=== PATIENT | female | born 1970 | race Caucasian/White ===

== ENCOUNTER → 2017-07-28 10:50 | Outpatient (CLI) | payer BC, SELFPAY ==
--- NOTE | 2017-07-28 10:52 | HPBI_ITS ---
MAMMOGRAPHY - BILATERAL SCREENING REASON FOR EXAM: Female, 47 years old. Routine annual screening examination. PERTINENT HISTORY: Aunt with breast cancer. TECHNIQUE: Digital bilateral breast shana (3D mammographic acquisition) in the CC and MLO projections. 2-D mediolateral oblique (MLO) and craniocaudad (CC) views of both breasts were obtained. CAD: Full Field Digital Mammography with Computer Added Detection was performed. COMPARISON: Comparison is made with prior study dated July 27, 2016 and July 07, 2015. FINDINGS: Breast Composition: The breasts are almost entirely fatty. There are no dominant masses or suspicious calcifications. No other significant abnormalities are identified. There has been no significant change since the prior study. HPBI/SCREENING MAMM (CAD), BILAT IMPRESSION: Stable bilateral screening mammogram. Yearly follow-up mammogram recommended. (A) ASSESSMENT CATEGORY: BIRADS Category 1: Negative. A letter regarding these results will be sent to the patient by the facility within 30 days. Approximately 10% of breast cancers are not detected by mammography. A normal mammogram should not delay biopsy of a clinically suspicious abnormality. [id number] Electronically Signed: Loki Vleásquez MD at 14:19 EST Tel [phone], Service support ,
[2017-08-01 11:33] LABS: HPV Reflexed? NOT INDICATED
== END ==
PROVIDERS: Family Provider Family Medicine; PCP Family Medicine; Visit Provider Obstetrics & Gynecology
DX: Z12.31 Encounter for screening mammogram for malignant neoplasm of breast (principal); Z12.4 Encounter for screening for malignant neoplasm of cervix
CPT/HCPCS: 77063; 77067; 88175; G0145

== ENCOUNTER → 2017-08-25 15:54 | Outpatient (CLI) | payer BC, SELFPAY ==
--- NOTE | 2017-08-25 15:57 | RAD_ITS ---
STUDY: X-RAY CHEST REASON FOR EXAM: Female, 47 years old. Asthma exacerbation TECHNIQUE: PA and lateral views of the chest. COMPARISON: 06/03/2008 FINDINGS: The lungs are clear and expanded. There is no demonstrated pleural abnormality. Normal size heart. Normal mediastinum and piedad. Normal visualized pulmonary arteries. Normal visualized aortic arch and descending thoracic aorta. There are diffuse degenerative changes of the visualized thoracic spine. Normal visualized ribs, clavicles, and shoulders. There is no demonstrated abnormality of the visualized soft tissue structures of the upper abdomen. RAD/Chest PA and Lateral IMPRESSION: No acute process in the chest. Electronically Signed: Colton Singleton DO at 15:54 EDT Tel , Service support ,
== END ==
PROVIDERS: Family Provider Family Medicine; PCP Family Medicine; Visit Provider Family Medicine
DX: J45.901 Unspecified asthma with (acute) exacerbation (principal)
CPT/HCPCS: 71046

== ENCOUNTER → 2017-10-07 11:32 | Outpatient (CLI) | payer BC, SELFPAY ==
--- NOTE | 2017-10-07 11:34 | VDLE_ITS ---
Reason For Study: LEG PAIN AND SWELLING RIGHT LEFT CFV is compressible, spontaneous, phasic, CFV is compressible, spontaneous, phasic, competent and demonstrates normal competent, and demonstrates normal augmentation. augmentation. FV is compressible, spontaneous, phasic, competent and demonstrates normal augmentation. POP V is compressible, spontaneous, phasic, competent and demonstrates normal augmentation. T/P Trunk is compressible. PTV is compressible. RT PerV is compressible. GSV not visualized s/p EVLA Hypoechoic structure noted rt medial pop space. Unable to measure due to shape. Non- vascular. Procedure Exam performed in department. A preliminary report was called and/or faxed to Dr. Joshi. Interpretation Summary Deep veins of the right lower extremity are patent and compressible segmentally. There is no evidence of right lower extremity deep vein thrombosis. Valvular competence appears intact within the proximal deep venous system on the right . The right great saphenous vein is absent, consistent with a prior endothermal ablation procedure. A non-vascular, hypoechoic structure is noted in the right medial popliteal space, which was not measured due to irregularity in shape. This probably represents a popliteal cyst. Clinical correlation is advised. Ordering Physician: Abhijit Joshi Referring Physician: Abhijit Joshi Performed By: Flor Miranda RVT
== END ==
PROVIDERS: Family Provider Family Medicine; PCP Family Medicine; Visit Provider Family Medicine
DX: R60.0 Localized edema (principal); M79.604 Pain in right leg
CPT/HCPCS: 93971

== ENCOUNTER → 2017-10-12 16:37 | Outpatient (CLI) | payer BC, SELFPAY ==
--- NOTE | 2017-10-12 16:39 | RAD_ITS ---
STUDY: X-RAY - RIGHT KNEE REASON FOR EXAM: Female, 47 years old. Pain Flores's cyst TECHNIQUE: 4 view(s) of the knee. COMPARISON: None. FINDINGS: Normal visualized distal femur. Normal visualized proximal tibia and fibula. Normal proximal tibiofibular articulation. Normal medial femorotibial compartment. Normal lateral femorotibial compartment. Normal patellofemoral articulation. The soft tissue structures are unremarkable. RAD/Knee 4 or More Views IMPRESSION: Normal x-ray examination of the knee. Electronically Signed: Terry Holder MD at 21:34 EDT , Service support ,
== END ==
PROVIDERS: Family Provider Family Medicine; PCP Family Medicine; Visit Provider Family Medicine
DX: M79.604 Pain in right leg (principal); M71.20 Synovial cyst of popliteal space [Baker], unspecified knee
CPT/HCPCS: 73564

== ENCOUNTER → 2018-03-03 08:35 | Outpatient (CLI) | payer BC, SELFPAY ==
[2018-03-03 12:09] LABS: Absolute Lymphocyte Count 1.32 X10^3/ul (0.83-4.51); Absolute Neutrophil Count 2.1 X10^3/uL (2.0-7.7); Basophil# 0.02 X10^3/uL; Basophil% 0.4 % (0-1); Eosinophil# 0.54 X10^3/uL; Eosinophils% 12.1 % (0-5); Hematocrit 40.5 % (37-47); Hemoglobin 12.8 g/dl (12.0-15.0); Lymphocyte # 1.32 X10^3/ul (4.0); Lymphocyte % 29.7 % (19-41); Mean Corp Hgb Conc 31.6 g/gl (32-36); Mean Corpuscular Volume 91.8 fL (81-99); Mean Platelet Vol. 10.6 fl (6.2-12.0); Monocyte# 0.47 X10^3/uL; Monocyte% 10.6 % (0-10); Neutrophil # 2.09 X10^3/uL (2.7-7.7); Platelet Count 227 K/mm3 (150-450); RBC Distribution Width CV 12.9 % (11.6-14.6); RBC Distribution Width SD 42.6 fl (35.1-43.9); Red Blood Count 4.41 M/mm3 (4.2-5.4); White Blood Count 4.5 K/mm3 (4.4-11.0)
[2018-03-03 12:21] LABS: POSITIVE COUNT NO; POSITIVE DIFFERENTIAL NO; POSITIVE MORPHOLOGY NO
[2018-03-03 12:31] LABS: ALB/GLOB Ratio 0.9 RATIO (0.9-2.4); AST(SGOT) 25 U/L (15-37); Alanine Aminotransfer ALT/SGPT 28 U/L (13-56); Albumin, Serum 3.5 g/dL (3.2-5.0); Alkaline Phosphatase 68 U/L (45-117); Anion Gap 4 (5-15); BUN 22 mg/dL (7-18); BUN/Creat Ratio 28.9 RATIO (10-20); Calcium,Total 9.2 mg/dL (8.5-10.1); Chloride 102 mmol/L (98-107); Creatinine, Serum 0.76 mg/dL (0.55-1.02); EST Glomerular Filtration Rate 86 mL/min (>60); Est Glom Filt Rate - Afr Amer 104 mL/min (>60); Globulin 3.7 g/dL (2.2-4.2); Glucose 88 mg/dL (74-106); Potassium 3.9 mmol/L (3.5-5.1); Protein, Total 7.2 g/dL (6.4-8.2); Sodium Level 137 mmol/L (136-145)
== END ==
PROVIDERS: Family Provider Family Medicine; PCP Family Medicine; Visit Provider Family Medicine
DX: R60.0 Localized edema (principal); I10 Essential (primary) hypertension; E55.9 Vitamin D deficiency, unspecified
CPT/HCPCS: 36415; 80053; 82306; 85025

== ENCOUNTER → 2018-08-08 14:57 | Outpatient (CLI) | payer BC, SELFPAY ==
[2017-10-13 07:48] VITALS: BMI 44.9
[2018-08-11 12:14] LABS: HPV Reflexed? NOT INDICATED
== END ==
PROVIDERS: Visit Provider Obstetrics & Gynecology
DX: Z12.4 Encounter for screening for malignant neoplasm of cervix (principal)
CPT/HCPCS: 88175; G0145

== ENCOUNTER → 2018-08-09 15:58 | Outpatient (CLI) | payer BC, SELFPAY ==
[2017-10-13 07:48] VITALS: BMI 44.9
--- NOTE | 2018-08-09 16:02 | BI_ITS ---
MAMMOGRAPHY - BILATERAL SCREENING REASON FOR EXAM: Female, 48 years old. Routine annual screening examination. PERTINENT HISTORY: Aunt with breast cancer. TECHNIQUE: Digital bilateral breast shana (3D mammographic acquisition) in the CC and MLO projections. 2-D mediolateral oblique (MLO) and craniocaudad (CC) views of both breasts were obtained. CAD: Full Field Digital Mammography with Computer Added Detection was performed. COMPARISON: Comparison is made with prior examination dated July 28, 2017 and July 27, 2016. FINDINGS: Breast Composition: The breasts are almost entirely fatty. There are no dominant masses or suspicious calcifications. Stable appearance of the small bilateral axillary lymph nodes. No other significant abnormalities are identified. There has been no significant change since the prior study. BI/SCREENING MAMM (CAD), BILAT IMPRESSION: Stable bilateral screening mammogram. Yearly follow-up mammogram recommended. (A) ASSESSMENT CATEGORY: BIRADS Category 2: Benign. A letter regarding these results will be sent to the patient by the facility within 30 days. Approximately 10% of breast cancers are not detected by mammography. A normal mammogram should not delay biopsy of a clinically suspicious abnormality. [id number] Electronically Signed: Loki Velásquez, at 9:28 EST , Service support ,
== END ==
PROVIDERS: Family Provider Family Medicine; PCP Family Medicine; Referring Provider Obstetrics & Gynecology; Visit Provider Obstetrics & Gynecology
DX: Z12.31 Encounter for screening mammogram for malignant neoplasm of breast (principal)
CPT/HCPCS: 77063; 77067

== ENCOUNTER → 2018-08-30 16:16 | Outpatient (CLI) | payer BC, SELFPAY ==
[2018-08-30 17:53] LABS: Anion Gap 6 (5-15); BUN 22 mg/dL (7-18); BUN/Creat Ratio 28.1 RATIO (10-20); Calcium,Total 9.5 mg/dL (8.5-10.1); Chloride 103 mmol/L (98-107); Creatinine, Serum 0.78 mg/dL (0.55-1.02); EST Glomerular Filtration Rate 83 mL/min (>60); Est Glom Filt Rate - Afr Amer 100 mL/min (>60); Glucose 87 mg/dL (74-106); Potassium 3.7 mmol/L (3.5-5.1); Sodium Level 140 mmol/L (136-145); T4 Free Direct 0.76 ng/dL (0.76-1.46); Thyroid Stim Hormone (TSH) 0.91 uIU/mL (0.358-3.74)
[2018-08-30 18:11] LABS: Vitamin D,25 Hydroxy 30.4 ng/mL (29.95-100.01)
== END ==
PROVIDERS: Family Provider Family Medicine; PCP Family Medicine; Visit Provider Family Medicine
DX: I10 Essential (primary) hypertension (principal); E55.9 Vitamin D deficiency, unspecified; E66.01 Morbid (severe) obesity due to excess calories
CPT/HCPCS: 36415; 80048; 82306; 84439; 84443

== ENCOUNTER → 2018-11-08 | Outpatient (CLI) | payer BC, SELFPAY ==
[2018-11-08 15:42] LABS: Chlamydia Trachomatis by PCR Negative (Negative); Neisserai gonorrhoeae by PCR Negative (Negative); Probe Check PASS; Sample Adequacy Control PASS; Specimen Processing Control PASS
== END | disposition home or self-care (01) ==
LOC: LABSPEC 13:12
PROVIDERS: Visit Provider Obstetrics & Gynecology
DX: Z11.3 Encounter for screening for infections with a predominantly sexual mode of transmission (principal)
CPT/HCPCS: 87491; 87591

== ENCOUNTER 2018-11-16 07:35 | Emergency (ER) | payer BC, SELFPAY ==
[2018-11-16 07:36] VITALS: BP 136/72; PULSE 68; RESP 15; TEMP 36.8; O2SAT 96; BMI 43.8
--- NOTE | 2018-11-16 08:02 | ED.VISSUMM ---
- ER Visit Summary Date of Service: 11/16/18 Chief Complaint: Bleeding History of Present Illness: The patient is a 48 F with a bleeding varicose vein. Patient has a history of varicose veins. 2 days ago, she was concerned she nicked 1 of the veins on her right molina. She had some bleeding which resolved. She made a follow-up appointment with her vein doctor for tomorrow. Today the bleeding recurred. She has a dressing in place and it seems that the bleeding has now stopped. Patient is not on blood thinners. Denies any other associated symptoms. Physical Examination: Vitals unremarkable. Patient alert and oriented. Patient has varicose veins and on abrasion at her right mid molina. There is no active bleeding. She is neurovascular intact distally. Skin is otherwise normal. Test Results: None indicated Emergency Department Course and Treatment: Gelfoam and dry dressing applied. Patient will be discharged to follow-up with her vein doctor tomorrow. Apply direct pressure for further bleeding. Treatment Plan: As above Disposition: Discharge Impression: 1. Bleeding varicose vein right leg This note was generated with [employer] dictation software. It may contain incorrect words, spelling, and punctuation that were not noted in review of the chart prior to signing
--- NOTE | 2018-11-16 08:05 | ED.DCSUM_ITS ---
- ER Visit Summary Date of Service: 11/16/18 Chief Complaint: Bleeding History of Present Illness: The patient is a 48 F with a bleeding varicose vein. Patient has a history of varicose veins. 2 days ago, she was concerned she nicked 1 of the veins on her right molina. She had some bleeding which resolved. She made a follow-up appointment with her vein doctor for tomorrow. Today the bleeding recurred. She has a dressing in place and it seems that the bleeding has now stopped. Patient is not on blood thinners. Denies any other associated symptoms. Physical Examination: Vitals unremarkable. Patient alert and oriented. Patient has varicose veins and on abrasion at her right mid molina. There is no active bleeding. She is neurovascular intact distally. Skin is otherwise normal. Test Results: None indicated Emergency Department Course and Treatment: Gelfoam and dry dressing applied. Patient will be discharged to follow-up with her vein doctor tomorrow. Apply direct pressure for further bleeding. Treatment Plan: As above Disposition: Discharge Impression: 1. Bleeding varicose vein right leg This note was generated with [employer] dictation software. It may contain incorrect words, spelling, and punctuation that were not noted in review of the chart prior to signing
--- NOTE | 2018-11-16 08:05 | ED.DEP ---
ED Disposition - Plan for ED Patient: Instructions: ED Veins Varicose Additional Instructions: apply direct pressure if bleeding recurs follow up with your vein doctor tomorrow
== END 2018-11-16 08:17 | disposition home or self-care (01) ==
LOC: ED 08:06
PROVIDERS: Emergency Provider Emergency Medicine; Family Provider Family Medicine; PCP Family Medicine
DX: I83.891 Varicose veins of right lower extremity with other complications (principal); J45.909 Unspecified asthma, uncomplicated; K21.9 Gastro-esophageal reflux disease without esophagitis; I10 Essential (primary) hypertension; G47.33 Obstructive sleep apnea (adult) (pediatric); Z79.51 Long term (current) use of inhaled steroids; Z79.899 Other long term (current) drug therapy
CPT/HCPCS: 99284

== ENCOUNTER → 2018-11-23 | Outpatient (CLI) | payer BC, SELFPAY ==
[2018-11-16 07:36] VITALS: BMI 43.8
== END | disposition home or self-care (01) ==
LOC: CVS 08:54
PROVIDERS: Family Provider Family Medicine; PCP Family Medicine; Referring Provider Surgery; Visit Provider Surgery
DX: I87.2 Venous insufficiency (chronic) (peripheral) (principal); I83.10 Varicose veins of unspecified lower extremity with inflammation; I83.891 Varicose veins of right lower extremity with other complications; M79.606 Pain in leg, unspecified
CPT/HCPCS: 93970

== ENCOUNTER → 2019-12-04 | Outpatient (CLI) | payer BC, SELFPAY ==
[2019-11-06 06:44] VITALS: BMI 43.8
--- NOTE | 2019-12-04 07:35 | BI_ITS ---
MAMMOGRAPHY - BILATERAL SCREENING REASON FOR EXAM: Female, 49 years old. Routine annual screening examination. PERTINENT HISTORY: Aunt with breast cancer. TECHNIQUE: Digital bilateral breast kasandra (3D mammographic acquisition) in the CC and MLO projections. 2-D mediolateral oblique (MLO) and craniocaudad (CC) views of both breasts were obtained. CAD: Full Field Digital Mammography with Computer Added Detection was performed. COMPARISON: Comparison is made with prior study dated August 09, 2018 and July 28, 2017. FINDINGS: Breast Composition: The breasts are almost entirely fatty. There are no dominant masses or suspicious calcifications. Stable appearance of the small bilateral axillary. No other significant abnormalities are identified. There has been no significant change since the prior study. BI/SCREEN MAMM (CAD) W/KASANDRA BILAT IMPRESSION: Stable bilateral screening mammogram. Yearly follow-up mammogram recommended. (A) ASSESSMENT CATEGORY: BIRADS Category 2: Benign. A letter regarding these results will be sent to the patient by the facility within 30 days. Approximately 10% of breast cancers are not detected by mammography. A normal mammogram should not delay biopsy of a clinically suspicious abnormality. [id number] Electronically Signed: Loki Velásquez, at 9:20 EDT , Service support ,
== END | disposition home or self-care (01) ==
LOC: OPBI 07:33
PROVIDERS: PCP Family Medicine; Referring Provider Obstetrics & Gynecology; Visit Provider Obstetrics & Gynecology
DX: Z12.31 Encounter for screening mammogram for malignant neoplasm of breast (principal)
CPT/HCPCS: 77063; 77067

== ENCOUNTER → 2019-12-11 | Outpatient (CLI) | payer BC, SELFPAY ==
[2019-11-06 06:44] VITALS: BMI 43.8
--- NOTE | 2019-12-11 10:08 | PFTCOMP_ITS ---
COMPLETE PULMONARY FUNCTION TEST INTERPRETATION Brief HPI: Patient is a 49 year old female, currently under the care of myself, who presents to [facility] for complete pulmonary function tests secondary to diagnosis of asthma. Respiratory therapist reports good effort and reproducible results. Interpretation: Forced expiration spirometry shows no large airways obstructive ventilatory defect with an FEV1 of 93% predicted. There is no significant bronchodilator response by strict ATS criteria. There was some improvement in small airways noted after bronchodilators. Spirograms are of good quality and plateau normally. The respiratory flow volume loop shows a normal pattern. Lung volumes by body plethysmography show a normal total lung capacity at 4.77 L, 100% predicted. All other lung volumes are within normal limits. Diffusion capacity by carbon monoxide is normal at 91% predicted. The airway resistance is normal. No previous pulmonary function tests were available for review. Impression: These pulmonary function tests are within normal limits. There was some improvement in small airway flow noted, so bronchoprovocation study could be considered for verification.
== END | disposition home or self-care (01) ==
LOC: PSN 06:53
PROVIDERS: PCP Family Medicine; Referring Provider Internal Medicine Critical Care Medicine; Visit Provider Internal Medicine Critical Care Medicine
DX: J45.909 Unspecified asthma, uncomplicated (principal)
CPT/HCPCS: 94060; 94726; 94729

== ENCOUNTER 2020-05-07 15:23 | Outpatient (RCR) | payer BC, SELFPAY ==
[2020-02-15 13:29] VITALS: BMI 41.6
--- NOTE | 2020-05-07 17:27 | HP.PTEVAL ---
Patient's Visit Information ALFRED HARPER is a 50 year old F referred to Physical Therapy by LISA Ramos with a diagnosis of . Date of Evaluation: 05/07/20 Physical Therapist: Morgan Gipson DPT - Visit Plan Frequency: 2x /Week Duration: 4 Weeks - Subjective Pt. is here today for her initial evaluation with diagnosis of lumbosacral radiculopathy, myofascial pain, sacrolitis, degeneration of of lumbar intervertebral disc. Pt. has been having increased symptoms for ~7-10 years. Pt. reports pain started without mech of injury. She has received multiple injections, sounds like multiple nerve ablasions, all which have helped, but recently started having increased symptoms higher than previously. She reports a constant pain in her low back and gluteal regions, but is having some pain that radiates down her R leg to her knee. She reports that this is a burning like sensation. Pt. does report occassional N/T in her R leg as well. 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 Pt. reports her symptoms are typically worse as the day progresses. She is hopeful to reduce her symptoms in order to get back to greater tolerance with all work and recerational activities. She is scheduled to have another injection next week. - Pain Lumbar spine Pain Intensity (Out of 10): 4 Pain Intensity Range: 4, 8 RLE Pain Intensity (Out of 10): 3 Pain Intensity Range: 2, 6 - Objective POSTURE: Pt. has slight anterior pelvic tilt - Anticipated Interventions Patient/Client Instruction: Educate patient on: Condition, Plan of Care, Risk Factors, Benefits of Fitness Program For the Purpose of:: To improve decision making, To facilitate caregiver knowledge, To improve self management, To prevent re-injury, To improve ability to perform tasks related to life management, To improve tolerance to ADL's Therapeutic Exercise to Include: Strength training, Power training, Body mechanics, Passive ROM, Active ROM, Dynamic Lumbar Stabilization, [place] Exercises For the Purpose of:: To decrease pain, To decrease swelling/inflammation, To increase ROM, To improve nutrient delivery to tissue IF ES: Yes Ultrasound (thermal/non thermal): Yes For the Purpose of:: To decrease pain, To decrease swelling/inflammation, To increase ROM, To improve nutrient delivery to tissue, To increase oxygenation perfusion, To improve muscle performance and motor function Thank you for the opportunity to evaluate your patient. For Medicare and Medicare HMO plans, please review the plan of care and approve it. It will need to be FAXED BACK to us at [phone] for Medicare purposes. For Medicare only, by signing this I certify the plan of care. Please let me know if there are questions or concerns regarding this plan of care. Physician Signature: Date:
== END 2020-05-07 19:00 | disposition home or self-care (01) ==
LOC: PT 15:23
PROVIDERS: PCP Family Medicine; Referring Provider Nurse Practitioner Family; Visit Provider Nurse Practitioner Family
DX: M47.27 Other spondylosis with radiculopathy, lumbosacral region (principal); M51.26 Other intervertebral disc displacement, lumbar region; M46.1 Sacroiliitis, not elsewhere classified; M79.18 Myalgia, other site; M51.17 Intervertebral disc disorders with radiculopathy, lumbosacral region
CPT/HCPCS: 97110; 97161

== ENCOUNTER → 2020-05-09 18:02 | Outpatient (CLI) | payer BC, SELFPAY ==
[2020-02-15 13:29] VITALS: BMI 41.6
[2020-05-14 10:21] LABS: Probe Check PASS; Specimen Processing Control PASS
== END ==
PROVIDERS: PCP Family Medicine; Referring Provider Family Medicine; Visit Provider Family Medicine
DX: Z20.828 Contact with and (suspected) exposure to other viral communicable diseases (principal)
CPT/HCPCS: 87635; C9803; U0002; U0003

== ENCOUNTER 2020-07-07 08:04 | Day surgery (SDC) | payer OTHER, SELFPAY ==
[2020-02-15 13:29] VITALS: BMI 41.6
[2020-07-07] VITALS (7 sets, daily range): BP systolic 105–144; BP diastolic 63–79; PULSE 60–69; RESP 16; TEMP 36.6–37.3; O2SAT 97–98; BMI 42.3
[2020-07-07] MEDS: Lactated Ringers 1,000 ML 100 ML IV (08:35)
[2020-07-07] MEDS: Lidocaine 1% (5 ml sdv) 5 ML Vial (09:09)
[2020-07-07] MEDS: MethylPREDNISolone Acetate 40 MG/ML Vial IM (09:09)
[2020-07-07] MEDS: 0.9% Normal Saline (Pres. free 10 ML Vial (09:10)
[2020-07-07] MEDS: Bupivacaine 0.25% 30 ML Vial (09:10)
--- NOTE | 2020-07-07 10:20 | PCM.OPRPT ---
Report of Operation Date of Procedure: 07/07/20 Description of Surgical Findings:: PREOPERATIVE DIAGNOSIS: Lumbosacral radiculopathy, lumbosacral degenerative disc disease, lumbosacral spinal stenosis POSTOPERATIVE DIAGNOSIS: Lumbosacral radiculopathy, lumbosacral degenerative disc disease, lumbosacral spinal stenosis PROCEDURE PERFORMED: Caudal epidural steroid injection. ANESTHESIA: MAC. BLOOD LOSS: Minimal. COMPLICATIONS: None. DESCRIPTION OF PROCEDURE: History and physical of today was reviewed. Risks and benefits of the procedure were explained. The patient understood and agreed to proceed. Informed consent was obtained. IV inserted per routine protocol. The patient was taken to the operating room and placed in the prone position with a pillow positioned underneath the abdomen. The lower back and tailbone area was prepped and draped in a sterile fashion using iodine x3. Under fluoroscopy guidance on a lateral view, the caudal space was identified. The skin and subcutaneous tissue was anesthetized with approximately 3 mL of 1% lidocaine using a 25-gauge regular needle. Under direct visualization with fluoroscopy, using a 22-gauge 3-1/2-inch spinal needle, the needle was advanced via the skin through the sacral hiatus. The tip of the needle was passed through the sacrococcygeal ligament and advanced to approximately S4 area. After negative aspiration of blood or CSF, a total of 3 mL of contrast was injected to confirm correct placement of the needle as well as cephalad spread. The spread was followed to approximately L5 area. After confirmation on AP as well as lateral view and repeated negative aspiration, a total of 15 mL of preservative-free 0.125% Marcaine with 80 mg of Depo-Medrol was injected easily. The needle was then removed intact. The patient experienced no sign or symptoms of intrathecal or intravascular injection. The patient experienced no paresthesia. The procedure was completed without any apparent difficulty or any complications. The patient appeared to tolerate it well. ASSESSMENT AND PLAN: This is a 50-year-old female with Lumbosacral radiculopathy, lumbosacral degenerative disc disease, lumbosacral spinal stenosis, status post caudal epidural steroid injection patient will continue her current medications, patient will follow in approximately 2 weeks for reevaluation.
--- NOTE | 2020-07-07 10:25 | RAD_ITS ---
PROCEDURE: Caudal block. DATE OF EXAMINATION: 07/07/2020 INDICATION: Female, 50 years old. Low back pain. FLUOROSCOPY TIME (if supplied): (14 seconds) minutes/seconds. One image was obtained. Intraoperative imaging provided for caudal block. RAD/Fluor Guidance for Spine Inj IMPRESSION: Intraoperative imaging provided for caudal block. Electronically Signed: Loki Velásquez MD at 10:18 EST , Service support ,
== END 2020-07-07 10:09 | disposition home or self-care (01) ==
LOC: SDC 08:06 → AC 08:06
PROVIDERS: PCP Family Medicine; Referring Provider Anesthesiology Pain Medicine; Visit Provider Anesthesiology Pain Medicine
PROC: 3E0S3BZ Introduction of Anesthetic Agent into Epidural Space, Percutaneous Approach (ICD-10-PCS; CPT 62282; principal; 2020-07-07 09:25)
DX: M51.17 Intervertebral disc disorders with radiculopathy, lumbosacral region (principal); M48.07 Spinal stenosis, lumbosacral region; M47.27 Other spondylosis with radiculopathy, lumbosacral region; M43.16 Spondylolisthesis, lumbar region; J45.909 Unspecified asthma, uncomplicated; I10 Essential (primary) hypertension; K21.9 Gastro-esophageal reflux disease without esophagitis; Z79.891 Long term (current) use of opiate analgesic; Z79.899 Other long term (current) drug therapy; Z79.51 Long term (current) use of inhaled steroids
CPT/HCPCS: 01992; 62323; 64520; 64483; 77003; J3490

== ENCOUNTER 2020-08-18 07:29 | Day surgery (SDC) | payer OTHER, SELFPAY ==
[2020-07-07 08:35] VITALS: BMI 42.3
[2020-08-18] VITALS (9 sets, daily range): BP systolic 124–148; BP diastolic 76–100; PULSE 55–72; RESP 12–16; TEMP 36.7–36.9; O2SAT 98–100; BMI 42.5
[2020-08-18] MEDS: Lactated Ringers 1,000 ML 100 ML IV (08:25)
--- NOTE | 2020-08-18 08:55 | RAD_ITS ---
PROCEDURE: Radiofrequency ablation. DATE OF EXAMINATION: 08/18/2020. INDICATION: Female, 50 years old. Chronic back pain. FLUOROSCOPY TIME (if supplied): (24.8 seconds) minutes/seconds. 6 images were obtained. Intraoperative imaging provided for right L3-S1 facet radiofrequency ablation. RAD/Lumbar Spine 2 or 3 Views IMPRESSION: Intraoperative imaging provided for right L3-S1 facet joint radiofrequency ablation. Electronically Signed: Loki Velásquez MD at 11:23 EDT , Service support ,
[2020-08-18] MEDS: Bupivacaine 0.25% 30 ML Vial (09:04)
[2020-08-18] MEDS: Lidocaine 1% (30 ml sdv) 30 ML Vial (09:04)
[2020-08-18] MEDS: MethylPREDNISolone Acetate 40 MG/ML Vial IM (09:04)
--- NOTE | 2020-08-18 12:15 | PCM.OPRPT ---
Report of Operation Date of Procedure: 08/18/20 Description of Surgical Findings:: PREOPERATIVE DIAGNOSIS: Lumbosacral spondylosis, lumbosacral degenerative disc disease, lumbar facet arthropathy POSTOPERATIVE DIAGNOSIS: Lumbosacral spondylosis, lumbosacral degenerative disc disease, lumbar facet arthropathy PROCEDURE PERFORMED: Right-sided radiofrequency lumbar ablation of the medial branch at L3, L4, L5, and S1. ANESTHESIA: MAC. BLOOD LOSS: Minimal. COMPLICATIONS: None. DESCRIPTION OF PROCEDURE: History and physical of today was reviewed. Risks and benefits of the procedure were explained. The patient understood and agreed to proceed. Informed consent was obtained. IV inserted per routine protocol. The patient was taken to the operating room and placed in the prone position with a pillow positioned underneath the abdomen. The right side of her lower back was prepped and draped in a sterile fashion using iodine x3. Under fluoroscopy guidance in an oblique view, the L3 through S1 vertebral bodies were visualized. The skin and subcutaneous tissue was anesthetized with approximately 10 mL of 1% lidocaine using a 25-gauge regular needle. Under direct visualization on fluoroscopy at approximately 25-degree angle, starting on the right L3, ending on the right S1, passing through the L4 and L5, using a 20-gauge 15-cm with a 10-mm curved active-tip radiofrequency ablation needle, the needle was passed through the skin. The tip of the needle was maneuvered and directed towards the superior medial gutter of the transverse process at the vicinity of the medial branch. Once the tip of the needle was in contact with the bone, the needle was pulled approximately 2 mm off the bone. The stylette of each needle was then removed. After negative aspiration of blood or CSF and confirmation on AP, oblique as well as lateral view, the radiofrequency ablation probe was then inserted at each level. Impedance was then recorded at L3 to be 222 ohm, at L4 to be 240 ohm, at L5 to be 276 ohm, and at S1 to be 204 ohm. Motor evoked potential was then initiated to 1.5 volt without any motor response at each corresponding level. The probe was then removed intact and a total of 6 mL of preservative-free 1% lidocaine was injected in divided doses between those four levels after negative aspiration of blood or CSF. The radiofrequency ablation probe was then reinserted. After confirmation on AP, oblique as well as lateral view, radiofrequency ablation was then initiated to 80 degree Celsius for 90 second at each level. Once concluded, the probe was then removed intact. A total of 6 mL of preservative-free 0.25% Marcaine with 40 mg of Depo-Medrol was injected in divided doses between those four levels. The needles were then removed intact. The patient experienced no sign or symptoms of intrathecal or intravascular injection. The patient experienced no paresthesia. The procedure was completed without any apparent difficulty or any complications. The patient appeared to tolerate it well. Sensory as well as motor exam was unchanged from prior to the procedure. ASSESSMENT AND PLAN: This is a 50-year-old female with lumbosacral spondylosis, lumbosacral degenerative disc disease, lumbar facet arthropathy status post right-sided lumbar radiofrequency ablation of the medial branch L3-S1, patient will continue her current medications, patient will follow in approximately 2 weeks for reevaluation.
== END 2020-08-18 10:16 | disposition home or self-care (01) ==
LOC: SDC 07:29 → AC 07:30
PROVIDERS: PCP Family Medicine; Referring Provider Anesthesiology Pain Medicine; Visit Provider Anesthesiology Pain Medicine
PROC: (CPT 64635; principal; 2020-08-18 08:45)
DX: M51.17 Intervertebral disc disorders with radiculopathy, lumbosacral region (principal); M47.27 Other spondylosis with radiculopathy, lumbosacral region; M43.16 Spondylolisthesis, lumbar region; J45.909 Unspecified asthma, uncomplicated; K21.9 Gastro-esophageal reflux disease without esophagitis; I10 Essential (primary) hypertension; Z79.899 Other long term (current) drug therapy; Z79.51 Long term (current) use of inhaled steroids
CPT/HCPCS: 64635; 64636; 72100; 76000; J7120

== ENCOUNTER → 2020-08-19 13:58 | Outpatient (CLI) | payer OTHER, SELFPAY ==
[2020-08-18 08:20] VITALS: BMI 42.5
[2020-08-19 15:28] LABS: Absolute Lymphocyte Count 1.17 X10^3/uL (0.83-4.51); Absolute Neutrophil Count 5.1 X10^3/uL (2.0-7.7); Basophil# 0.02 X10^3/uL; Basophil% 0.3 % (0-1); Eosinophil# 0.09 X10^3/uL; Eosinophils% 1.3 % (0-5); Hematocrit 41.3 % (37-47); Hemoglobin 12.9 g/dL (12.0-15.0); Lymphocyte # 1.17 X10^3/ul (4.0); Lymphocyte % 17.1 % (19-41); Mean Corp Hgb Conc 31.2 g/dL (32-36); Mean Corpuscular Hgb 28.6 pg (27.0-32.0); Mean Corpuscular Volume 91.6 fL (81-99); Mean Platelet Vol. 10.3 fl (6.2-12.0); Monocyte# 0.39 X10^3/uL; Monocyte% 5.7 % (0-10); NRBC Flagged by Analyzer 0 % (0-5); Neutrophil # 5.13 X10^3/uL (2.7-7.7); Neutrophil % 75.2 % (47-70); Platelet Count 264 K/mm3 (150-450); RBC Distribution Width CV 13.1 % (11.6-14.6); RBC Distribution Width SD 44.4 fl (35.1-43.9); Red Blood Count 4.51 M/mm3 (4.2-5.4); White Blood Count 6.8 K/mm3 (4.4-11.0)
[2020-08-19 15:53] LABS: Vitamin D,25 Hydroxy 31.5 ng/mL
[2020-08-19 16:06] LABS: Anion Gap 3 (5-15); BUN 21 mg/dL (7-18); BUN/Creat Ratio 32.1 RATIO (10-20); Calcium,Total 9.3 mg/dL (8.5-10.1); Chloride 105 mmol/L (98-107); Creatinine, Serum 0.65 mg/dL (0.55-1.02); EST Glomerular Filtration Rate 101 mL/min (>60); Est Glom Filt Rate - Afr Amer 122 mL/min (>60); Glucose 87 mg/dL (74-106); Potassium 3.8 mmol/L (3.5-5.1); Sodium Level 138 mmol/L (136-145); T4 Free Direct 0.84 ng/dL (0.76-1.46); Thyroid Stim Hormone (TSH) 0.51 uIU/mL (0.358-3.74)
== END ==
PROVIDERS: PCP Family Medicine; Referring Provider Family Medicine; Visit Provider Family Medicine
DX: E55.9 Vitamin D deficiency, unspecified (principal); F32.9 Major depressive disorder, single episode, unspecified; E66.01 Morbid (severe) obesity due to excess calories
CPT/HCPCS: 36415; 80048; 82306; 84439; 84443; 85025

== ENCOUNTER → 2020-09-01 16:44 | Outpatient (CLI) | payer OTHER, SELFPAY ==
[2020-08-18 08:20] VITALS: BMI 42.5
--- NOTE | 2020-09-01 16:46 | RAD_ITS ---
STUDY: X-RAY - THORACIC SPINE REASON FOR EXAM: Female, 50 years old. Back pain TECHNIQUE: 3 view(s) of the thoracic spine were obtained. COMPARISON: Chest x-ray dated 08/25/17 FINDINGS: There is thoracic kyphotic deformity noted. There is no evidence of fracture or dislocation in the thoracic spine. There are moderate multilevel degenerative changes with disc space narrowing and anterior osteophytes. This is stable when compared with the chest x-ray dated 08/25/17. There are no significant degenerative changes. RAD/Thoracic Spine 2 Views IMPRESSION: No fracture or dislocation in the thoracic spine. Stable degenerative changes. Kyphosis. Electronically Signed: Darren Wagner MD at 9:34 EDT Tel , Service support ,
== END ==
PROVIDERS: PCP Family Medicine; Referring Provider Nurse Practitioner Family; Visit Provider Nurse Practitioner Family
DX: M54.6 Pain in thoracic spine (principal)
CPT/HCPCS: 72070

== ENCOUNTER → 2020-10-10 17:29 | Outpatient (CLI) | payer OTHER, SELFPAY ==
[2020-09-29 10:31] VITALS: BMI 43.9
--- NOTE | 2020-10-10 17:34 | MRI_ITS ---
STUDY: MRI LUMBAR SPINE WITHOUT CONTRAST REASON FOR EXAM: Female, 50 years old. DEGENERATION OF LUMBAR TECHNIQUE: Standardized fat and water weighted pulse sequences were obtained in the sagittal and axial planes. COMPARISON: None FINDINGS: Normal lumbar lordosis. There is no substantial scoliosis. Normal conus medullaris that terminates at the T12/L1 L1-2: There is minimal disc space narrowing and endplate spondylosis. There is no significant disc herniation, central canal or foraminal stenosis. L2-3: There is minimal disc space narrowing and endplate spondylosis. There is no significant disc herniation, central canal or foraminal stenosis. Mild facet arthropathy L3-4: There is mild disc space narrowing and endplates spondylosis. Mild disc bulge with small central protrusion and moderate facet arthropathy without significant central canal stenosis. Mild right and mild left foraminal stenosis. L4-5: There is mild disc space narrowing and endplates spondylosis. Mild disc bulge and moderate facet arthropathy without significant central canal stenosis. Mild right and mild left foraminal stenosis. Minimal grade 1 anterolisthesis. L5-S1: There is minimal disc space narrowing and endplate spondylosis. There is no significant disc herniation, central canal or foraminal stenosis. Moderate facet arthropathy. Normal visualized sacral ala. MRI/Spine Lumbar (Routine) IMPRESSION: L4-5: Moderate facet arthropathy. Minimal grade 1 anterolisthesis. Electronically Signed: Rocky Young MD at 8:04 EDT Tel , Service support ,
== END ==
PROVIDERS: PCP Family Medicine; Referring Provider Nurse Practitioner Family; Visit Provider Nurse Practitioner Family
DX: M51.17 Intervertebral disc disorders with radiculopathy, lumbosacral region (principal); M51.16 Intervertebral disc disorders with radiculopathy, lumbar region; M47.27 Other spondylosis with radiculopathy, lumbosacral region; M43.16 Spondylolisthesis, lumbar region
CPT/HCPCS: 72148

== ENCOUNTER → 2020-11-21 07:18 | Outpatient (CLI) | payer OTHER, SELFPAY ==
[2020-10-31 11:01] VITALS: BMI 43.9
--- NOTE | 2020-11-21 07:20 | US_ITS ---
STUDY: RENAL ULTRASOUND - COMPLETE REASON FOR EXAM: Female, 50 years old. URETERAL STONE . Right flank pain. TECHNIQUE: Ultrasound evaluation of the kidneys was performed with real-time and static morales-scale imaging. COMPARISON: Comparison is made with prior study dated 06/10/2016. FINDINGS: RIGHT KIDNEY: Normal location of the right kidney, which is normal in size. The right kidney measures 11.3 cm x 5.1 cm x 4.6 cm. There is a normal cortex of the right kidney. The renal cortex measures 1.5 cm. There is no right renal mass or cyst. There are no right renal calculi. There is no right hydronephrosis. DISTAL RIGHT URETER: There is non-visualization of the distal right ureter. There is no demonstrated right ureterovesical junction calculus. There is a visualized right ureteral jet. LEFT KIDNEY: Normal location of the left kidney, which is normal in size. The left kidney measures 11.1 cm x 5.4 cm x 6.7 cm. There is a normal cortex of the left kidney. The renal cortex measures 1.9 cm. There is no left renal mass or cyst. There are no left renal calculi. There is no left hydronephrosis. DISTAL LEFT URETER: There is non-visualization of the distal left ureter. There is no demonstrated left ureterovesical junction calculus. There is a visualized left ureteral jet. BLADDER: The distended urinary bladder has a volume of 82 ml. There is a normal wall thickness of the distended urinary bladder. There is no demonstrated mass within the urinary bladder. There are no demonstrated bladder calculi. US/Kidney and Bladder IMPRESSION: Normal ultrasound of the kidneys and urinary bladder. Electronically Signed: Loki Velásquez MD at 10:01 EDT , Service support ,
== END ==
PROVIDERS: PCP Family Medicine; Referring Provider Family Medicine; Visit Provider Family Medicine
DX: N20.1 Calculus of ureter (principal); R31.9 Hematuria, unspecified
CPT/HCPCS: 76770

== ENCOUNTER → 2020-12-22 | Outpatient (CLI) | payer OTHER, SELFPAY ==
[2020-12-22 13:35] VITALS: BMI 43.9
[2020-12-26 22:29] LABS: HPV APTIMA, High Risk Negative (Negative)
== END | disposition home or self-care (01) ==
LOC: LAB 15:18 → LABSPEC 15:19
PROVIDERS: PCP Family Medicine; Referring Provider Nurse Practitioner Women's Health; Visit Provider Nurse Practitioner Women's Health
DX: Z12.4 Encounter for screening for malignant neoplasm of cervix (principal)
CPT/HCPCS: 87624; 88175; G0145

== ENCOUNTER → 2020-12-26 16:24 | Outpatient (CLI) | payer OTHER, SELFPAY ==
[2020-12-22 13:35] VITALS: BMI 43.9
--- NOTE | 2020-12-26 16:27 | US_ITS ---
EXAM: US PELVIS TRANSABDOMINAL AND TRANSVAGINAL, COMPLETE CLINICAL INDICATION: back pain that radiates to pelvis TECHNIQUE: Transabdominal and transvaginal pelvic ultrasound was performed with grayscale and color Doppler imaging. Transvaginal imaging was used for better evaluation of the endometrium and adnexa. This report was created using [employer] report generation technology. COMPARISON: None. FINDINGS: UTERUS/CERVIX: Hypoechoic myometrial mass of the uterine fundus measures 1.4 x 0.9 x 1.1 cm, compatible with small uterine fibroid. Uterus measures 7.5 x 4.5 x 2.5 cm. Endometrial complex measures 4 mm. Anteverted. RIGHT OVARY: Right ovary is not visualized. No adnexal mass seen. LEFT OVARY: Left ovary is not visualized. No adnexal mass seen. FREE FLUID: None. BLADDER: Unremarkable as visualized. Wall is normal thickness for degree of distention. US/Transvaginal Non- IMPRESSION: 1.4 cm uterine fibroid. Neither ovary identified. No adnexal masses are seen. Electronically Signed: Dinh Valentino MD ([place]) at 17:15 EDT , Service support ,
--- NOTE | 2020-12-26 16:27 | US_ITS ---
EXAM: US PELVIS TRANSABDOMINAL AND TRANSVAGINAL, COMPLETE CLINICAL INDICATION: back pain that radiates to pelvis TECHNIQUE: Transabdominal and transvaginal pelvic ultrasound was performed with grayscale and color Doppler imaging. Transvaginal imaging was used for better evaluation of the endometrium and adnexa. This report was created using [employer] report generation technology. COMPARISON: None. FINDINGS: UTERUS/CERVIX: Hypoechoic myometrial mass of the uterine fundus measures 1.4 x 0.9 x 1.1 cm, compatible with small uterine fibroid. Uterus measures 7.5 x 4.5 x 2.5 cm. Endometrial complex measures 4 mm. Anteverted. RIGHT OVARY: Right ovary is not visualized. No adnexal mass seen. LEFT OVARY: Left ovary is not visualized. No adnexal mass seen. FREE FLUID: None. BLADDER: Unremarkable as visualized. Wall is normal thickness for degree of distention. US/Pelvic (Non ) IMPRESSION: 1.4 cm uterine fibroid. Neither ovary identified. No adnexal masses are seen. Electronically Signed: Dinh Valentino MD ([place]) at 17:15 EDT , Service support ,
== END ==
PROVIDERS: PCP Family Medicine; Referring Provider Nurse Practitioner Women's Health; Visit Provider Nurse Practitioner Women's Health
DX: R10.2 Pelvic and perineal pain (principal)
CPT/HCPCS: 76830; 76856

== ENCOUNTER → 2020-12-31 15:44 | Outpatient (CLI) | payer OTHER, SELFPAY ==
[2020-10-31 11:01] VITALS: BMI 43.9
[2020-12-30 08:45] VITALS: BMI 43.9
--- NOTE | 2020-12-31 15:46 | BI_ITS ---
MAMMOGRAPHY - BILATERAL SCREENING REASON FOR EXAM: Female, 50 years old. Routine annual screening examination. PERTINENT HISTORY: Aunt with breast cancer. TECHNIQUE: Digital bilateral breast kasandra (3D mammographic acquisition) in the CC and MLO projections. 2-D mediolateral oblique (MLO) and craniocaudad (CC) views of both breasts were obtained. CAD: Full Field Digital Mammography with Computer Added Detection was performed. COMPARISON: Comparison is made with prior study dated 12/04/2019 and 08/09/2018 FINDINGS: Breast Composition: The breasts are almost entirely fatty. There are no dominant masses or suspicious calcifications. Stable small benign appearing bilateral axillary nodes. No other significant abnormalities are identified. There has been no significant change since the prior study. BI/SCRN MAMM (CAD)W/KASANDRA BILAT IMPRESSION: Stable bilateral screening mammogram. Yearly follow-up mammogram recommended. (A) ASSESSMENT CATEGORY: BIRADS Category 2: Benign. A letter regarding these results will be sent to the patient by the facility within 30 days. Approximately 10% of breast cancers are not detected by mammography. A normal mammogram should not delay biopsy of a clinically suspicious abnormality. [id number] Electronically Signed: Loki Velásquez MD at 8:16 EDT , Service support ,
== END ==
PROVIDERS: PCP Family Medicine; Referring Provider Nurse Practitioner Women's Health; Visit Provider Nurse Practitioner Women's Health
DX: Z12.31 Encounter for screening mammogram for malignant neoplasm of breast (principal)
CPT/HCPCS: 77063; 77067

== ENCOUNTER 2021-01-26 12:10 | Emergency (ER) | payer OTHER, SELFPAY ==
[2021-01-26 12:11] VITALS: BP 154/99; PULSE 66; RESP 16; TEMP 36.4; O2SAT 99; BMI 43.4
--- NOTE | 2021-01-26 12:16 | VDLE_ITS ---
Reason For Study: RLE pain RIGHT CFV is compressible, spontaneous, phasic, competent and demonstrates normal augmentation. FV is compressible, spontaneous, phasic, competent and demonstrates normal augmentation. POP V is compressible, spontaneous, phasic, competent and demonstrates normal augmentation. T/P Trunk is compressible. PTV is compressible. RT PerV is compressible. GSV has been ablated. Varicosities at medial knee area are dialted and non compressible. Procedure This is a venous duplex using B-mode, color flow and spectral Doppler. Exam performed portable in ED. A preliminary report was called and/or faxed to ED. VL/Venous Duplex US, Unilateral Interpretation Summary There is no evidence of right lower extremity deep vein thrombosis. Ablated rig ht great saphenous vein Superficial thrombosis phlebitis varicosities right medial knee. Ordering Physician: Hayder Luna Referring Physician: Abhijit Joshi Performed By: Lenora Benitez, NASIR, RVT
--- NOTE | 2021-01-26 14:17 | EDS_ITS ---
HPI History of Present Illness Chief Complaint: Lower Extremity Injury Narrative Narrative: Patient presents with right leg pain and swelling for the past few days. She has no chest pain or shortness of breath. No history of trauma. She does have some history of venous insufficiency and varicosities. [facility] Medical History (Updated 01/26/21 @ 14:[address] Lex Grissom MD) Anxiety Arthritis Asthma Back problem Bronchitis Degeneration, intervertebral disc Depression GERD (gastroesophageal reflux disease) Hematuria HTN (hypertension) Kidney stones Morbid obesity AMALIA (obstructive sleep apnea) Rectal bleeding vein removal legs Vitamin D deficiency Home Medications famotidine 20 mg PO BID 03/11/14 [History Last Taken 08/18/20] meloxicam 7.5 mg PO DAILY 03/11/14 [History Last Taken 08/18/20] lisinopril-hydrochlorothiazide 1 tab PO DAILY 07/14/16 [History Last Taken 11/15/18] cholecalciferol (vitamin D3) 10,000 unit PO DAILY 08/02/16 [History Last Taken 11/15/18] albuterol sulfate 90 mcg/actuation aerosol inhaler 2 puff INHALATION Q4H PRN PRN #18 g 11/06/19 [Rx Last Taken Unknown] fluticasone propionate 2 puff INHALATION ONCE 07/02/20 [History Last Taken 08/18/20] baclofen 10 mg tablet 10 mg PO TID PRN tab 12/30/20 [History Last Taken Unknown] fluoxetine 40 mg capsule 40 mg PO DAILY cap 12/30/20 [History Last Taken Unkno wn] Allergy/AdvReac Type Severity Reaction Status Date / Time cefdinir [From Omnicef] Allergy Shortness Verified 01/26/21 12:13 of breath Family History Mother Hypertension Asthma Father Hypertension Thyroid disorder Surgical History History of History of colonoscopy (~07/2016) History of foot surgery History of renal stent Hx of vein stripping S/P endometrial ablation Status post right foot surgery Social History (Updated 12/30/20 @ 08:38 by Gina Polanco) Smoking Status: Never smoker second hand exposure: No alcohol intake: never substance use type: does not use caffeine: Yes what type of physical activity do you participate in: none frequency: does not exercise ROS ROS ED ROS Narrative Past medical history: none Medications: Reviewed Social history: Noncontributory Review of systems: General: No fevers Respiratory: No shortness of breath Cardiovascular: No chest pain Musculoskeletal: Right posterior knee pain as in HPI Skin: No abrasions or lacerations Neurological: No weakness or paresthesias Hematologic: No easy bleeding or easy bruising EXAM Physical Exam Narrative Exam Narrative: Physical exam General: Patient does not appear in significant distress . Head: Normocephalic, Atraumatic Neck: No C-spine tenderness Cardiovascular: Normal distal pulses Back: Nontender, Normal Inspection. Extremities: Right lower extremity reveals tenderness and varicosities behind the right knee. Clinically she has superficial thrombophlebitis. No calf pain no edema no signs of cellulitis. Skin: No abrasions, no lacerations Neurological: Normal strength and sensation Const Vital Signs: 01/26/21 12:11 Temperature 97.6 F L Temperature Source Temporal Pulse Rate 66 Respiratory Rate 16 Blood Pressure 154/99 H Blood Pressure Mean 117 Pulse Ox 99 Oxygen Delivery Method Room Air MDM MDM MDM Narrative Medical decision making narrative: Venous ultrasound done per protocol does not show any DVT. She clinically has thrombophlebitis I will instruct her on compr esses and use of NSAIDs. Otherwise I will discharge her in stable condition. Discharge Plan Triage Chief Complaint: Lower Extremity Injury ED Provider: Lex Grissom Dx/Rx/DC Orders Clinical Impression: Superficial thrombophlebitis Instructions: ED Thrombophlebitis, Superficial Prescriptions: No Action albuterol sulfate 90 mcg/actuation HFA aerosol inhaler 2 puff INHALATION Q4H PRN PRN (Reason: Wheezing) Qty: 18 RF: 1 baclofen 10 mg tablet 10 mg PO TID PRNRF: 0 fluoxetine 40 mg capsule 40 mg PO DAILY RF: 0 meloxicam 7.5 MG tablet 7.5 mg PO DAILY RF: 0 famotidine 20 MG tablet 20 mg PO BID RF: 0 lisinopril-hydrochlorothiazide 1 TABLET tablet 1 tab PO DAILY RF: 0 cholecalciferol (vitamin D3) 5,000 UNIT capsule 10,000 unit PO DAILY RF: 0 fluticasone propionate 12 GM HFA aerosol inhaler 2 puff INHALATION ONCE RF: 0 Primary Care Provider: Abhijit Joshi Referrals: John Huffman MD [STAFF PHYSICIAN] - 3-5 Days Abhijit Joshi MD [Primary Care Provider] - Disposition Disposition: Home, Self Care
[2021-01-26 14:32] VITALS: BP 124/77; PULSE 75; RESP 18; O2SAT 98
== END 2021-01-26 14:48 | disposition home or self-care (01) ==
LOC: ED 14:37
PROVIDERS: Emergency Provider Emergency Medicine; PCP Family Medicine
DX: I80.01 Phlebitis and thrombophlebitis of superficial vessels of right lower extremity (principal)
CPT/HCPCS: 93971; 99282

== ENCOUNTER 2021-02-02 07:35 | Day surgery (SDC) | payer OTHER, SELFPAY ==
[2020-12-30 08:45] VITALS: BMI 43.9
--- NOTE | 2021-02-02 07:54 | H&P.OPEN ---
HPI - General HPI Narrative ALFRED HARPER, is a 51 F who presents for colonoscopy due to history of bright red blood per rectum. Patient initially had it about 6 weeks ago and states she has had a couple since her office visit about a month ago. Patient still does have the lower abdominal pain states is a little bit better currently. Patient previously did have ultrasound kidney kidneys that did not show any kidney stones. Patient denies any family history of colon cancer. Patient last colonoscopy was done in July 2016 only showed internal hemorrhoid and it was done for bright red blood per rectum previously. [facility] Medical History (Updated 01/29/21 @ 09:18 by Vanessa Townsend) Anxiety Arthritis Asthma Back pain Back problem Bronchitis CPAP (continuous positive airway pressure) dependence Degeneration, intervertebral disc Depression Gastric reflux GERD (gastroesophageal reflux disease) Hematuria History of hiatal hernia History of steroid therapy HTN (hypertension) Kidney stones Morbid obesity Non-smoker AMALIA (obstructive sleep apnea) Post-menopausal Rectal bleeding Shortness of breath on exertion Sleep apnea Superficial phlebitis vein removal legs Vitamin D deficiency Wears glasses Home Medications famotidine 20 mg PO BID 03/11/14 [History Last Taken 08/18/20] meloxicam 7.5 mg PO DAILY 03/11/14 [History Last Taken 08/18/20] lisinopril-hydrochlorothiazide 1 tab PO DAILY 07/14/16 [History Last Taken 11/15/18] cholecalciferol (vitamin D3) 5,000 unit PO DAILY 08/02/16 [History Last Taken 11/15/18] albuterol sulfate 90 mcg/actuation aerosol inhaler 2 puff INHALATION Q4H PRN PRN #18 g 11/06/19 [Rx Last Taken Unknown] fluticasone propionate [Flovent HFA] 2 puff INHALATION ONCE 07/02/20 [History Last Taken 08/18/20] baclofen 10 mg tablet 10 mg PO TID PRN tab 12/30/20 [History Last Taken Unknown] fluoxetine 40 mg capsule 40 mg PO DAILY cap 12/30/20 [History Last Taken Unknown] Allergy/AdvReac Type Severity Reaction Status Date / Time cefdinir [From Omnicef] Allergy Shortness Verified 02/02/21 07:38 of breath Family History Mother Hypertension Asthma Father Hypertension Thyroid disorder Surgical History (Updated 01/29/21 @ 09:18 by Vanessa Townsend) History of History of colonoscopy (~07/2016) History of foot surgery History of renal stent Hx of vein stripping S/P endometrial ablation Status post right foot surgery Social History (Updated 12/30/20 @ 08:38 by Gina Polanco) Smoking Status: Never smoker second hand exposure: No alcohol intake: never substance use type: does not use caffeine: Yes what type of physical activity do you participate in: none frequency: does not exercise Past Medical/Surgical History Planned Operation Planned Operative Procedure/s: COLONOSCOPY S.O.S: No Previous Hospitalizations/Surgeries HX Hospitalizations: No HX of Surgeries: X 1 BILATERAL VEIN STRIPPING LEGS FOOT SURGERY INJECTIONS TO BACK FOR PAIN RELIEF CYSTO/STENT PLACEMENT 2014 CYSTO, URETEROSCOPY COLONOSCOPY 2016 Any Problems With Anesthesia: No You/Your Family Experience Fever (Hyperthermia) With Anes: No Cholinesterase deficiency: No Cardiovascular Hx Chest Pain within Last 2 months: No Hx of Irregular Heartbeat and/or Afib: No Hx Heart Attack: No Hx Congestive Heart Failure: No Hx Rheumatic Fever: No Hx Hypertension: Yes (CONTROLLED WITH MEDS) Hx Internal Defibrillator: No Hx Pacemaker: No Hx Cardiac Catheterization: Yes ([facility] 2006) What facility was last heart cath performed: - Date of last Heart Cath: - Hx Cardiac Surgery/Stents/Etc.: No Hx Stress Test: Yes (2005, ECHO 2006) Hx Pain in Legs when Walking/Leg Cramps: No Respiratory Chronic Cough: No HX of Shortness of Breath: Yes (WITH EXERTION) Hoarseness: No Hx Chronic Obstructive Pulmonary Disease (COPD): No Hx Asthma: Yes (ON INHALERS) Hx Emphysema: No Hx Sleep Apnea: Yes CPAP: Yes BIPAP: No Hx Respiratory Tract Infection/Cold (presently): No Result (for STOP score): Positive Hx Smoking: No Smoking Status: Never smoker Gastrointestinal Hx Gastroesophageal Reflux: Yes Controlled With Meds: Yes (PEPCID) Hx Gastrointestinal Disorders: No Hx Gastrointestinal Bleed: No Hx Ulcer: No Hx Hiatal Hernia: Yes Difficulty Chewing/Swallowing: No Special diet followed at home: No Hx Unplanned Weight Loss of 20#: No HX Unplanned Weight Gain of 20#: No Neurological Hx Seizures: No HX Syncope/Blackout Spells/Unconsciousness: No Hx Transient Ischemic Attacks (TIA): No Hx Multiple Sclerosis: No Hx Parkinson's Disease: No Hx Head/Neck Injury: No Hx Headaches: No Hx Back Injury/Pain: Yes (GETS STEROID INJECTIONS PER DR. ROSALES) Recent Onset of Speech Difficulty: No Restless Legs: No Does patient have nerve stimulator: No Blood Disorder Hx Leukemia: No Bleeding Tendencies: No Hx Deep Vein Thrombosis: No (SUPERFICIAL) Hx High Cholesterol: No Blood Transmitted Disease: No Hx Hepatitis: No Hx Cirrhosis: No Hx Anemia: No Hx Blood Disorders: No Reproduction Is Patient Lactating: No Hx Hysterectomy: No Hx Tubal Ligation: No Are You Post Menopause: Yes Genitourinary Hx Renal Disease: No (STONES) Hx Dialysis: No Musculoskeletal Hx Arthritis: Yes (lower back) Hx Rheumatoid Arthritis: No Hx Gout: No Recent Onset of an Orthopedic Problem: No Endocrine Hx Diabetes: No Insulin: No Thyroid Disease: No Hx Steroid Therapy: Yes (INJECTION 03/2020) Psycho/Social Hx Substance Use: No Hx Alcohol Use: No Hx Anxiety: No Hx Depression: No Mental Illness: No Hx Dementia: No Miscellaneous Hx Cancer: No Recent Exposure to Contagious Disease: No Hx of C-Diff: No Any Loose Teeth: No Allergies cefdinir [From Omnicef] Allergy (Verified 02/02/21 07:38) Shortness of breath Discharge Is Pt Admitted From a [facility], or a [facility]: No After D/C, Where Do you Plan to Go: Return Home Vital Signs Vital Signs Vital Signs: Weight Body Mass Index (BMI) 43.9 Physical Exam Const alert, oriented x3 and no apparent distress HEENT normocephalic and head/scalp atraumatic Resp normal respiratory effort Cardio regular rate GI soft to palpation and non-tender; Negative for non-distended Palpation: Negative for guarding Extremity no clubbing, cyanosis or edema Neuro CN's II-XII intact bilaterally Psych mental status grossly normal Assessment & Plan Assessment/Plan (1) BRBPR (bright red blood per rectum): Procedure Criteria Type of Procedure Procedure Type: Elective Elective Risks - COVID COVID Risk Discussion: The surgeon/proceduralist and patient have discussed in detail the risk of exposure to and/or potential harm posed by the COVID-19 virus with having a surgery/procedure at this time versus the risk of delaying the surgery/procedure. It is not possible to know either the risk of delaying the surgery or procedure or chance of getting an infection with perfect accuracy, but a joint decision was made between the patient and the surgeon/proceduralist to proceed at this time with the scheduled surgery/procedure as indicated on the consent form. Surgery Risks - Colonoscopy Risks Include but are not Limited To: Risks include but are not limited to: Bleeding, perforation requiring further surgery, inability to complete colonoscopy requiring barium enema.
[2021-02-02 07:56] VITALS: BP 137/75; PULSE 74; RESP 16; TEMP 36.9; O2SAT 96; BMI 42.7
[2021-02-02] MEDS: Lactated Ringers 1,000 ML 100 ML IV (08:01)
[2021-02-02 08:35] VITALS: BP 137/75; BP 98/57; PULSE 65; RESP 16; TEMP 36; O2SAT 98
--- NOTE | 2021-02-02 08:35 | OP.COLON_ITS ---
Patient Name: Allyn Shelton Procedure Date: 02/02/2021 7:47 AM Date of : 1970 Age: 51 Procedure: Colonoscopy Indications: Rectal bleeding Providers: Syeda Mcneal MD Referring MD: Sydea Mcneal MD Medicines: Monitored Anesthesia Care Patient Profile: This is a 51 year old female. Last Colonoscopy: 2016. Complications: No immediate complications. Procedure: Pre-Anesthesia Assessment: - Prior to the procedure, a History and Physical was performed, and patient medications and allergies were reviewed. The patient's tolerance of previous anesthesia was also reviewed. The risks and benefits of the procedure and the sedation options and risks were discussed with the patient. All questions were answered, and informed consent was obtained. Prior Anticoagulants: The patient has taken no previous anticoagulant or antiplatelet agents. ASA Grade Assessment: Per anesthesia. After reviewing the risks and benefits, the patient was deemed in satisfactory condition to undergo the procedure. After I obtained informed consent, the scope was passed under direct vision. Throughout the procedure, the patient's blood pressure, pulse, and oxygen saturations were monitored continuously. The colonoscope was introduced through the anus and advanced to the cecum, identified by the appendiceal orifice, ileocecal valve and palpation. The colonoscopy was performed without difficulty. The patient tolerated the procedure well. The quality of the bowel preparation was good. Scope In: 8:16:12 AM Scope Withdrawal Time 0 hours 6 minutes 44 seconds Scope Out: 8:29:38 AM Total Procedure Duration Time 0 hours 13 minutes 26 seconds Findings: Non-bleeding external and internal hemorrhoids were found. The hemorrhoids were Grade I (internal hemorrhoids that do not prolapse). The entire examined colon appeared normal. Impression: - Non-bleeding external and internal hemorrhoids. - The entire examined colon is normal. - No specimens collected. Recommendation: - Discharge patient to home. - Resume previous diet. - Continue present medications. - Repeat colonoscopy in 10 years for screening purposes. Procedure Code(s): --- Professional --- 58062, Colonoscopy, flexible; diagnostic, including collection of specimen(s) by brushing or washing, when performed (separate procedure) Diagnosis Code(s): --- Professional --- K64.0, First degree hemorrhoids K62.5, Hemorrhage of anus and rectum CPT copyright 2017 [employer]. All rights reserved. The codes documented in this report are preliminary and upon licensing registration examiner review may be revised to meet current compliance requirements. MD Syeda Grimes MD 02/02/2021 8:34:30 AM This report has been signed electronically. Number of Addenda: 0 Note Initiated On: 02/02/2021 7:47 AM
--- NOTE | 2021-02-02 08:35 | OP.CCLET_ITS ---
02/02/2021 Abhijit Joshi Re : Colonoscopy procedure for Allyn Shelton Dear Adi This procedure was performed on Tuesday, February 02, 2021. My impressions and recommendations are as follows: Impressions : - Non-bleeding external and internal hemorrhoids. - The entire examined colon is normal. - No specimens collected. Recommendations : - Discharge patient to home. - Resume previous diet. - Continue present medications. - Repeat colonoscopy in 10 years for screening purposes. My findings are described in the full procedure note, which is enclosed. If I can be of further assistance, please feel free to contact me at Doctor phone number(s): , Work: . Sincerely, MD Syeda Grimes MD 02/02/2021 8:34:30 AM This report has been signed electronically.
[2021-02-02 08:40] VITALS: BP 137/75; BP 95/56; PULSE 67; RESP 16; O2SAT 98
[2021-02-02 08:45] VITALS: BP 137/75; BP 97/60; PULSE 64; RESP 16; O2SAT 97
[2021-02-02 08:50] VITALS: BP 110/87; BP 137/75; PULSE 71; RESP 16; TEMP 35.9; O2SAT 100
[2021-02-02 09:03] VITALS: BP 137/75
== END 2021-02-02 09:13 | disposition home or self-care (01) ==
LOC: EN 07:36 → AC 07:36
PROVIDERS: PCP Family Medicine; Referring Provider Surgery; Visit Provider Surgery
PROC: 0DJD8ZZ Inspection of Lower Intestinal Tract, Via Natural or Artificial Opening Endoscopic (ICD-10-PCS; CPT 45378; principal; 2021-02-02 08:10)
DX: K64.0 First degree hemorrhoids (principal); K62.5 Hemorrhage of anus and rectum; F41.9 Anxiety disorder, unspecified; M19.90 Unspecified osteoarthritis, unspecified site; J45.909 Unspecified asthma, uncomplicated; F32.9 Major depressive disorder, single episode, unspecified; K21.9 Gastro-esophageal reflux disease without esophagitis; I10 Essential (primary) hypertension; E66.01 Morbid (severe) obesity due to excess calories; Z68.41 Body mass index [BMI] 40.0-44.9, adult; Z79.51 Long term (current) use of inhaled steroids; Z79.899 Other long term (current) drug therapy
CPT/HCPCS: 45378; 87426; J7120; J2405

== ENCOUNTER → 2021-05-06 15:49 | Outpatient (CLI) | payer OTHER, SELFPAY ==
--- NOTE | 2021-05-06 15:54 | RAD_ITS ---
STUDY: X-RAY - PELVIS AND RIGHT HIP REASON FOR EXAM: Female, 51 years old. HIP PAIN TECHNIQUE: 3 views of the pelvis and hip. COMPARISON: None. FINDINGS: There is a non-specific bowel gas pattern. Normal visualized soft tissue structures. No visualized fracture or displaced bony fragment. Normal bilateral iliac wings, sacroiliac joints and visualized sacrum. Normal bilateral superior and inferior pubic rami. Normal pubic symphysis. Normal bilateral ischial tuberosities. Normal visualized femoral head. Normal acetabulum. Normal hip joint. RAD/HIP, UNI W/ Pelvis 2-3 Views IMPRESSION: Normal x-ray examination of the pelvis and hip. Electronically Signed: Vish Bain MD at 20:03 EST , Service support ,
== END ==
PROVIDERS: PCP Family Medicine; Referring Provider Nurse Practitioner Family; Visit Provider Nurse Practitioner Family
DX: M25.551 Pain in right hip (principal)
CPT/HCPCS: 73502

== ENCOUNTER → 2021-12-01 | Outpatient (CLI) | payer BC, SELFPAY ==
[2021-12-01 18:24] LABS: Anion Gap 10 (5-15); BUN 18 mg/dL (7-18); BUN/Creat Ratio 22.7 RATIO (10-20); Calcium,Total 9.7 mg/dL (8.5-10.1); Chloride 102 mmol/L (98-107); Creatinine, Serum 0.79 mg/dL (0.55-1.02); EST Glomerular Filtration Rate 81 mL/min (>60); Est Glom Filt Rate - Afr Amer 98 mL/min (>60); Glucose 84 mg/dL (74-106); Potassium 3.8 mmol/L (3.5-5.1); Sodium Level 138 mmol/L (136-145)
== END | disposition home or self-care (01) ==
LOC: MTLAB 16:26
PROVIDERS: PCP Family Medicine; Referring Provider Nurse Practitioner Family; Visit Provider Nurse Practitioner Family
DX: Z79.899 Other long term (current) drug therapy (principal)
CPT/HCPCS: 36415; 80048

== ENCOUNTER → 2021-12-09 | Outpatient (CLI) | payer BC, SELFPAY ==
--- NOTE | 2021-12-09 07:46 | ECHOD_ITS ---
Reason For Study: Dyspnea/SOB Procedure This was a 2D Doppler, Color Flow transthoracic echocardiogram. Exam performed in department. Left Ventricle Normal LV size. Left ventricular systolic function is normal. The estimated ejection fraction is 60 %. No evidence for diastolic dysfunction. No regional wall motion abnormalities noted. Right Ventricle Normal RV size. Normal systolic function. Atria Normal left atrium. Normal right atrium. No doppler evidence for ASD. Mitral Valve There is no mitral annular calcification. Normal mitral valve. Mild (1+) mitral valve insufficiency. Tricuspid Valve Normal tricuspid valve. Moderate (2+) tricuspid valve insufficiency. Right ventricular systolic pressure estimated to be 25 mmHg. Aortic Valve Trisinus/trileaflet aortic valve. Mild focal aortic valve calcification. Pulmonic Valve The pulmonic valve is not well visualized. Trivial pulmonic valve insufficiency. Great Vessels Normal sized aortic root. Pericardium/Pleural No pericardial effusion. MMode/2D Measurements & Calculations LVIDd: 5.2 cm IVSd: 0.81 cm Ao root diam: 3.2 cm LVIDs: 3.5 cm LVPWd: 0.77 cm RVDd: 3.6 cm FS: 32.9 % LAV(MOD-bp): 54.8 ml LVAd ap4: 31.7 cm2 SV(MOD-sp4): 58.0 ml LAV(MOD-bp) Indexed: 25.6 ml/m2 LVLd ap4: 7.8 cm LAV(MOD-sp2): 70.1 ml EDV(MOD-sp4): 103.0 ml LAV(MOD-sp4): 40.3 ml EDV(sp4-el): 108.8 ml LVAs ap4: 19.1 cm2 LVLs ap4: 6.6 cm ESV(MOD-sp4): 45.0 ml ESV(sp4-el): 46.7 ml EF(MOD-sp4): 56.3 % EF(sp4-el): 57.1 % SV(sp4-el): 62.1 ml LA A4 area: 16.1 cm2 LA dimension(2D): 3.9 cm RA A4 area: 12.4 cm2 Doppler Measurements & Calculations MV E max joshua: 68.6 cm/sec Lat Peak E' Joshua: 10.7 cm/sec Med Peak E' Joshua: 5.0 cm/sec MV A max joshua: 66.0 cm/sec E/E' lat: 6.4 E/E' med: 13.8 MV E/A: 1.0 Ao V2 max: 131.0 cm/sec LV V1 max: 116.5 cm/sec PA V2 max: 106.1 cm/sec Ao max P.9 mmHg LV V1 max P.4 mmHg Ao V2 mean: 89.5 cm/sec Ao mean P.5 mmHg Ao V2 VTI: 28.3 cm TR max joshua: 233.4 cm/sec TR max P.8 mmHg ECHO/Echo Complete Interpretation Summary Left ventricular systolic function is normal. The estimated ejection fraction is 60 %. Mild (1+) mitral valve insufficiency. Moderate (2+) tricuspid valve insufficiency. Mild focal aortic valve calcification. Trivial pulmonic valve insufficiency. Right ventricular systolic pressure estimated to be 25 mmHg. No evidence for diastolic dysfunction. Ordering Physician: Maynor Odell Referring Physician: Abhijit Joshi Performed By: Irais Gregory, NASIR, RVT
== END | disposition home or self-care (01) ==
LOC: CVS 07:45
PROVIDERS: PCP Family Medicine; Referring Provider Internal Medicine Critical Care Medicine; Visit Provider Internal Medicine Critical Care Medicine
DX: R06.02 Shortness of breath (principal)
CPT/HCPCS: 93306

== ENCOUNTER → 2022-06-25 | Outpatient (CLI) | payer BC, SELFPAY | END | disposition home or self-care (01) | LOC: BFHLAB 16:14 → LABSPEC 16:15 | PROVIDERS: PCP Family Medicine; Visit Provider Family Medicine | DX: U07.1 COVID-19 (principal) | CPT/HCPCS: 87635; U0003; U0005 ==

== ENCOUNTER → 2022-07-07 | Outpatient (CLI) | payer BC, SELFPAY ==
[2022-07-07 18:04] LABS: Absolute Lymphocyte Count 1.64 X10^3/uL (0.83-4.51); Absolute Neutrophil Count 3.3 X10^3/uL (2.0-7.7); Basophil# 0.03 X10^3/uL; Basophil% 0.5 % (0-1); Eosinophil# 0.35 X10^3/uL; Eosinophils% 5.9 % (0-5); Hematocrit 40.2 % (37-47); Hemoglobin 12.7 g/dL (12.0-15.0); Lymphocyte # 1.64 X10^3/ul (0.83-4.51); Lymphocyte % 27.8 % (19-41); Mean Corp Hgb Conc 31.6 g/dL (32-36); Mean Corpuscular Hgb 28.3 pg (27.0-32.0); Mean Corpuscular Volume 89.5 fL (81-99); Mean Platelet Vol. 10.7 fl (6.2-12.0); Monocyte# 0.55 X10^3/uL; Monocyte% 9.3 % (0-10); NRBC Flagged by Analyzer 0 % (0-5); Platelet Count 300 K/mm3 (150-450); RBC Distribution Width CV 13.3 % (11.6-14.6); RBC Distribution Width SD 43.6 fl (35.1-43.9); Red Blood Count 4.49 M/mm3 (4.2-5.4); White Blood Count 5.9 K/mm3 (4.4-11.0)
[2022-07-07 18:27] LABS: Anion Gap 10 (5-15); BUN 21 mg/dL (7-18); BUN/Creat Ratio 25.7 RATIO (10-20); Calcium,Total 10.3 mg/dL (8.5-10.1); Chloride 100 mmol/L (98-107); Creatinine, Serum 0.82 mg/dL (0.55-1.02); EST Glomerular Filtration Rate 78 mL/min (>60); Est Glom Filt Rate - Afr Amer 94 mL/min (>60); Glucose 83 mg/dL (74-106); Potassium 3.9 mmol/L (3.5-5.1); Sodium Level 137 mmol/L (136-145)
[2022-07-07 23:11] LABS: Xtra Tube EP Lab EXTRA TUBE
== END | disposition home or self-care (01) ==
LOC: BFHLAB 15:07
PROVIDERS: PCP Family Medicine; Visit Provider Family Medicine
DX: Z01.818 Encounter for other preprocedural examination (principal)
CPT/HCPCS: 36415; 80048; 85025

== ENCOUNTER → 2022-10-01 | Outpatient (CLI) | payer BC, SELFPAY ==
--- NOTE | 2022-10-01 11:45 | BI_ITS ---
MAMMOGRAPHY - BILATERAL SCREENING REASON FOR EXAM: Female, 52 years old. Routine annual screening examination. PERTINENT HISTORY: Aunt with breast cancer. TECHNIQUE: Digital bilateral breast kasandra (3D mammographic acquisition) in the CC and MLO projections. 2-D mediolateral oblique (MLO) and craniocaudad (CC) views of both breasts were obtained. CAD: Full Field Digital Mammography with Computer Added Detection was performed. COMPARISON: Comparison is made with prior study of December 31, 2020 and December 04, 2019. FINDINGS: Breast Composition: The breasts are almost entirely fatty. There are no dominant masses or suspicious calcifications. Stable small benign-appearing bilateral axillary lymph nodes. No other significant abnormalities are identified. There has been no significant change since the prior study. BI/SCRN MAMM (CAD)W/KASANDRA BILAT IMPRESSION: Stable bilateral screening mammogram. Yearly follow-up mammogram recommended. (A) ASSESSMENT CATEGORY: BIRADS Category 2: Benign. A letter regarding these results will be sent to the patient by the facility within 30 days. Approximately 10% of breast cancers are not detected by mammography. A normal mammogram should not delay biopsy of a clinically suspicious abnormality. [id number] Electronically Signed: Loki Velásquez MD at 13:22 EDT ,
== END | disposition home or self-care (01) ==
LOC: OPBI 11:45
PROVIDERS: PCP Family Medicine; Referring Provider Nurse Practitioner Women's Health; Visit Provider Nurse Practitioner Women's Health
DX: Z12.31 Encounter for screening mammogram for malignant neoplasm of breast (principal)
CPT/HCPCS: 77063; 77067

== ENCOUNTER → 2022-11-23 | Outpatient (CLI) | payer BC, SELFPAY ==
[2022-11-23 14:38] LABS: Absolute Lymphocyte Count 1.27 X10^3/uL (0.83-4.51); Basophil# 0.04 X10^3/uL; Eosinophil# 0.32 X10^3/uL; Hematocrit 41.5 % (37-47); Hemoglobin 13.2 g/dL (12.0-15.0); Lymphocyte # 1.27 X10^3/ul (0.83-4.51); Lymphocyte % 31.8 % (19-41); Mean Corp Hgb Conc 31.8 g/dL (32-36); Mean Corpuscular Hgb 28.5 pg (27.0-32.0); Mean Corpuscular Volume 89.6 fL (81-99); Mean Platelet Vol. 10.3 fl (6.2-12.0); Monocyte# 0.38 X10^3/uL; Monocyte% 9.5 % (0-10); NRBC Flagged by Analyzer 0 % (0-5); Neutrophil # 1.98 X10^3/uL (2.7-7.7); Neutrophil % 49.4 % (47-70); Platelet Count 251 K/mm3 (150-450); RBC Distribution Width CV 13.5 % (11.6-14.6); RBC Distribution Width SD 44.1 fl (35.1-43.9); Red Blood Count 4.63 M/mm3 (4.2-5.4)
[2022-11-23 15:01] LABS: ALB/GLOB Ratio 0.9 RATIO (0.9-2.4); AST(SGOT) 19 U/L (15-37); Alanine Aminotransfer ALT/SGPT 18 U/L (13-56); Albumin, Serum 3.5 g/dL (3.2-5.0); Alkaline Phosphatase 88 U/L (45-117); Anion Gap 4 (5-15); BUN 20 mg/dL (7-18); BUN/Creat Ratio 25.2 RATIO (10-20); Calcium,Total 10.1 mg/dL (8.5-10.1); Chloride 104 mmol/L (98-107); Creatinine, Serum 0.79 mg/dL (0.55-1.02); EST Glomerular Filtration Rate 80 mL/min (>60); Est Glom Filt Rate - Afr Amer 97 mL/min (>60); Globulin 3.8 g/dL (2.2-4.2); Glucose 96 mg/dL (74-106); Potassium 3.9 mmol/L (3.5-5.1); Protein, Total 7.3 g/dL (6.4-8.2); Sodium Level 139 mmol/L (136-145)
== END | disposition home or self-care (01) ==
LOC: BFHLAB 11:43
PROVIDERS: PCP Family Medicine; Visit Provider Nurse Practitioner Family
DX: R07.89 Other chest pain (principal); M62.838 Other muscle spasm
CPT/HCPCS: 36415; 80053; 83735; 85025

== ENCOUNTER 2023-02-21 10:00 | Outpatient (RCR) | payer OTHER, BC, SELFPAY ==
--- NOTE | 2022-08-04 15:02 | HP.PTEVAL_ITS ---
Patient's Visit Information ALFRED HARPER is a 52 year old F referred to Physical Therapy by Dr. Brad Moreno MD with a diagnosis of STRAIN OF MUSCLES FASCIA AND TENDON OF LEFT HIP SUBEQUENT ENCOUNTER. Date of Evaluation: 08/04/22 Physical Therapist: Willy Horan, PT, Cert MDT, OCS - Visit Plan Frequency: 2x /Week Duration: 8weeks Plan: PATIENT UNDERWENT S/P LEFT SCOPE WITH GLUTEUS MEDIUS AND MINIMUS REPAIR AND ROTIUM AUGUMENTAION. SEE PROTOCAL FOR GLUTEUS MEDIUS REPAIR 07/12 NWB LLE WITH CRUTCHES . PT INTERVENTIONS PER PROTOCAL FOR ROM PER RSTRICTION , MANUAL THERAY ,STRENGTHENING HIP ,CORE EX'S ,GAIT AND BALANCE AFTER 6 WEEKS AFTER NWB LLE NUSTEP/BIKE AND FUNCTIONAL STRENGTHENING - Subjective This 52 y/o female presents physical therapy with Left Gluteus Medius with repair on Jul [address] Moreno at [facility] Patient d/c DOS with crutches with NWB left LLE . Patient recently seen last week 08/01/22 and RTD August. 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 Patient seen chiropractor and tried PT at [facility] made symptoms worse. Patient eventually had MRI from [employer] [facility] and recommended [facility] Tried PRP which didn't work. Patient has 3week to RTD then progress with WB . Patient 1 story home no stairs. Patient has tub seat in tube. Patient needs assist with Lower extremity .Son does cooking/cleaning. Patient has limitations with gait with endurance. Patient has left numbness foot. Patient has limitations with ADLS and housework tasks . Patient goals to return work and ADLS's. SOCAIL: single. VOCATION: [employer] - Pain Left Hip Pain Intensity (Out of 10): 2 Pain Intensity Range: 10 - Objective POSTURE: WFL NWB LEFT. INCSION: well approximate port sutures. EDEMA: mild effusion hip. GAIT: Ambulates with NWB LLE ~ 100 ft becomes tired. PROM: left hip flexion < 90 degrees , abduction 25 degrees. MMT: quad/hams 4-/5 , NA HIP - Balance/Special Test Scores Lower Extremity Functional Score: 6 - Goals Goal 1:: Patient to be I with glut medius repair protocal. Goal Time Frame: 12-16 Weeks Goal 2:: Patient to ambulate with WBAT with improve gait pattern and equal and stance time. Goal Time Frame: 12-16 Weeks Goal 3:: Patient improve AROM WFL to improve stairs and function. Goal Time Frame: 12-16 Weeks Goal 4:: Patient to improve strength quads/hams 4/5 ,hip flexion/ abduction 4-/5 to improve gait Goal Time Frame: 12-16 Weeks Goal 5:: Patient to improve LFES score by 20 to improve function with gait and function. Goal Time Frame: 12-16 Weeks Goal 6:: Patient RTW as able . Goal Time Frame: 12-16 Weeks - Rehabilitation Potential Physical Therapy Diagnosis: This underwent s/p left Gluteus Medius/Minimus repair on 07/12/22 with impairments with decrease gait with NWB LE x6 weeks ,decrease ROM ,weakness hip ,ADLS and inability to return to work thus will benefit from skilled PT Rehabilitation Potential: Good - Anticipated Interventions Patient/Client Instruction: Educate patient on: Condition, Plan of Care For the Purpose of:: To decrease pain, To increase ROM, To increase tolerance to activity/condition/position, To improve ability of physical actions for home/community/work/leisure, To improve gait and locomotor functions, To improve health of tissue, To decrease soft tissue restriction, To increase flexibility/ROM, To improve endurance, To improve balance, To reduce risk of recurrence Therapeutic Exercise to Include: Strength training, Endurance training, Balance training, Postural training, Flexibilty training, Gait and locomotor training, Passive ROM, Active ROM, Dynamic Lumbar Stabilization Comment: SEE PROTOCAL GLUT MEDIUS REPAIR For the Purpose of:: To decrease pain, To decrease swelling/inflammation, To increase ROM, To improve muscle performance and motor function, To improve ability to perform ADL's, To increase tolerance to activity/condition/position, To improve ability of physical actions for home/community/work/leisure, To improve gait and locomotor functions, To improve health of tissue, To decrease soft tissue restriction, To increase flexibility/ROM, To improve endurance, To improve balance, To reduce risk of recurrence, To improve tolerance to ADL's Manual Therapy Techniques to Include: Mobilization, Passive ROM Comment: HIP For the Purpose of:: To decrease pain, To increase ROM, To improve health of tissue, To decrease soft tissue restriction, To increase flexibility/ROM Thank you for the opportunity to evaluate your patient. For Medicare and Medicare HMO plans, please review the plan of care and approve it. It will need to be FAXED BACK to us at [phone] for Medicare purposes. For Medicare only, by signing this I certify the plan of care. Please let me know if there are questions or concerns regarding this plan of care. Physician Signature: Date:
== END 2023-02-21 19:00 | disposition home or self-care (01) ==
LOC: PT 10:00
PROVIDERS: PCP Family Medicine; Referring Provider Orthopaedic Surgery Sports Medicine; Visit Provider Orthopaedic Surgery Sports Medicine
DX: S76.012D Strain of muscle, fascia and tendon of left hip, subsequent encounter (principal)
CPT/HCPCS: 97110; 97140; 97162; 97530

== ENCOUNTER 2023-03-21 10:00 | Outpatient (RCR) | payer OTHER, SELFPAY ==
--- NOTE | 2023-04-27 11:34 | HP.PTDCSUM ---
Discharge Summary D/C summary: It has been my pleasure to treat ALFRED HARPER referred by Dr. Brad Moreno MD, with the diagnosis of STRAIN OF MUSCLES FASCIA AND TENDON OF LEFT HIP SUBEQUENT ENCOUNTER for a total of 61 visit(s). Discharge Date: Please see the following information for a summary of their discharge status. Subjective Subjective: Doing good .plan to see DR Overall Improvement % Improvement: 80 Objective Objective/Function: Normal leesa STAIRS: ascend/descend 12 steps with 15#KB MMT: (peak force) quads 61.5 ,.hamstrings 50.3 ,hip flexion 47.7,hip abduction 27.3 LIFTING 25# POWER LIFT ,DIFFICULTY WITH 50# Goals Goal 1:: Patient to normalize gait on all surfaces with limp Goal Progress: Progressing Goal 2:: Patient to improve peak force of hip flexion and abductors by 25 -30# strength to improve gait and function Goal Progress: Goal Met Goal 3:: Patient to demonstrate 80% improvement to improve function and RTW. Goal Progress: Goal Met Goal 4:: Patient to improve LFES score by 20 points to improve QOL and function Goal Progress: Goal Met Goal 5:: Patient to RTW without limiations Goal Progress: Progressing Plan Plan: D/C FROM PT RTD POSSIBLE WORK CONDITIONING D/C Information d/c sentence: If there are questions or concerns regarding this patient's physical therapy, please feel free to call me at [phone]. Thank you for the referral of this patient. Sincerely, Willy Horan, PT, Cert MDT, OCS Balance/Gait/Functional tests Improvement % Improvement: 80
== END 2023-03-21 19:00 | disposition home or self-care (01) ==
LOC: PT 10:00
PROVIDERS: PCP Family Medicine; Referring Provider Orthopaedic Surgery Sports Medicine; Visit Provider Orthopaedic Surgery Sports Medicine
DX: S76.012D Strain of muscle, fascia and tendon of left hip, subsequent encounter (principal)
CPT/HCPCS: 97110; 97530

== ENCOUNTER 2023-12-20 09:54 | Outpatient (CLI) | payer BC, SELFPAY ==
[2023-12-20 12:20] LABS: Absolute Lymphocyte Count 1.39 X10^3/uL (0.83-4.51); Absolute Neutrophil Count 3.8 X10^3/uL (2.0-7.7); Basophil# 0.04 X10^3/uL; Basophil% 0.6 % (0-1); Eosinophil# 0.38 X10^3/uL; Eosinophils% 6.1 % (0-5); Hematocrit 42.1 % (37-47); Hemoglobin 13.3 g/dL (12.0-15.0); Lymphocyte # 1.39 X10^3/ul (0.83-4.51); Lymphocyte % 22.2 % (19-41); Mean Corp Hgb Conc 31.6 g/dL (32-36); Mean Corpuscular Hgb 28.2 pg (27.0-32.0); Mean Corpuscular Volume 89.4 fL (81-99); Mean Platelet Vol. 10.5 fl (6.2-12.0); Monocyte# 0.59 X10^3/uL; Monocyte% 9.4 % (0-10); NRBC Flagged by Analyzer 0 % (0-5); Neutrophil # 3.82 X10^3/uL (2.7-7.7); Neutrophil % 61.2 % (47-70); Platelet Count 253 K/mm3 (150-450); RBC Distribution Width CV 13.5 % (11.6-14.6); RBC Distribution Width SD 44.1 fl (35.1-43.9); Red Blood Count 4.71 M/mm3 (4.2-5.4); White Blood Count 6.3 K/mm3 (4.4-11.0)
[2023-12-20 13:07] LABS: ALB/GLOB Ratio 0.9 RATIO (0.9-2.4); AST(SGOT) 28 U/L (15-37); Alanine Aminotransfer ALT/SGPT 25 U/L (13-56); Albumin, Serum 3.7 g/dL (3.2-5.0); Alkaline Phosphatase 82 U/L (45-117); Anion Gap 8 (5-15); BUN 29 mg/dL (7-18); BUN/Creat Ratio 28.2 RATIO (10-20); Calcium,Total 10.1 mg/dL (8.5-10.1); Chloride 104 mmol/L (98-107); Creatinine, Serum 1.03 mg/dL (0.55-1.02); EST Glomerular Filtration Rate 59 mL/min (>60); Est Glom Filt Rate - Afr Amer 72 mL/min (>60); Globulin 3.9 g/dL (2.2-4.2); Glucose 86 mg/dL (74-106); Potassium 4.2 mmol/L (3.5-5.1); Protein, Total 7.6 g/dL (6.4-8.2); Sodium Level 137 mmol/L (136-145)
== END 2023-12-20 23:59 | disposition home or self-care (01) ==
LOC: MTLAB 09:56
PROVIDERS: PCP Family Medicine; Referring Provider Clinical Nurse Specialist Adult Health; Visit Provider Clinical Nurse Specialist Adult Health
DX: Z79.891 Long term (current) use of opiate analgesic (principal); Z79.1 Long term (current) use of non-steroidal anti-inflammatories (NSAID)
CPT/HCPCS: 36415; 80053; 85025

== ENCOUNTER → 2024-02-24 | Outpatient (CLI) | payer BC, SELFPAY ==
[2024-02-24 15:19] LABS: Absolute Lymphocyte Count 1.61 X10^3/uL (0.83-4.51); Absolute Neutrophil Count 3.8 X10^3/uL (2.0-7.7); Basophil# 0.04 X10^3/uL; Basophil% 0.6 % (0-1); Eosinophil# 0.31 X10^3/uL; Eosinophils% 4.9 % (0-5); Hematocrit 39.9 % (37-47); Hemoglobin 12.5 g/dL (12.0-15.0); Lymphocyte # 1.61 X10^3/ul (0.83-4.51); Lymphocyte % 25.3 % (19-41); Mean Corp Hgb Conc 31.3 g/dL (32-36); Mean Corpuscular Hgb 27.7 pg (27.0-32.0); Mean Corpuscular Volume 88.3 fL (81-99); Mean Platelet Vol. 10.6 fl (6.2-12.0); Monocyte# 0.63 X10^3/uL; Monocyte% 9.9 % (0-10); NRBC Flagged by Analyzer 0 % (0-5); Neutrophil # 3.76 X10^3/uL (2.7-7.7); Platelet Count 279 K/mm3 (150-450); RBC Distribution Width CV 13.8 % (11.6-14.6); RBC Distribution Width SD 44.8 fl (35.1-43.9); Red Blood Count 4.52 M/mm3 (4.2-5.4); White Blood Count 6.4 K/mm3 (4.4-11.0)
[2024-02-24 17:22] LABS: AST(SGOT) 26 U/L (15-37); Alanine Aminotransfer ALT/SGPT 26 U/L (13-56); Albumin, Serum 3.8 g/dL (3.2-5.0); Alkaline Phosphatase 77 U/L (45-117); Anion Gap 7 (5-15); BUN 24 mg/dL (7-18); BUN/Creat Ratio 25.6 RATIO (10-20); Calcium,Total 10.4 mg/dL (8.5-10.1); Chloride 102 mmol/L (98-107); Creatinine, Serum 0.94 mg/dL (0.55-1.02); EST Glomerular Filtration Rate 66 mL/min (>60); Est Glom Filt Rate - Afr Amer 80 mL/min (>60); Globulin 3.8 g/dL (2.2-4.2); Glucose 88 mg/dL (74-106); Potassium 4.2 mmol/L (3.5-5.1); Protein, Total 7.6 g/dL (6.4-8.2); Sodium Level 136 mmol/L (136-145)
== END | disposition home or self-care (01) ==
LOC: BFHLAB 13:47
PROVIDERS: PCP Family Medicine; Visit Provider Family Medicine
DX: Z01.818 Encounter for other preprocedural examination (principal)
CPT/HCPCS: 36415; 80053; 85025

== ENCOUNTER → 2024-06-08 | Outpatient (CLI) | payer BC, SELFPAY | END | disposition home or self-care (01) | LOC: LABSPEC 16:19 | PROVIDERS: PCP Family Medicine; Referring Provider Otolaryngology; Visit Provider Otolaryngology | DX: J02.9 Acute pharyngitis, unspecified (principal) | CPT/HCPCS: 87070 ==

== ENCOUNTER 2024-06-09 06:34 | Emergency (ER) | payer BC, SELFPAY ==
[2024-06-09 06:34] VITALS: BP 164/87; PULSE 76; RESP 16; TEMP 36.6; O2SAT 98; BMI 43.4
--- NOTE | 2024-06-09 07:15 | EX.ED.VIS.UR ---
HPI HPI - URI History of Present Illness Chief Complaint: Cold Sx Informant: patient Onset/Context/Timing Onset: Days Context: Gradual Onset Timing: Continuous Current Severity: Mild Maximum Severity: Mild Associated Symptoms Associated Symptoms: Positive for Nasal Congestion, Myalgias and Productive Cough (Yellow sputum.) Narrative Narrative: 54-year-old female with past medical history of hypertension. States she has had URI symptoms for a week. Complaining of a cough at times of yellowish sputum. Nasal congestion. Sore throat. Bilateral earache. Denies vomiting or diarrhea. No significant fever. At times she has wheezing but not currently. Prior similar symptoms: Yes Recent Illness/Hospitalization: No ROS ROS ED ROS Narrative Cough. Nasal. Sore throat. Earaches. Constitutional Constitutional ED: Denies chills or fever(s) Eyes Eyes: Denies blurry vision ENT ENT ED: Reports ear pain, rhinorrhea and sore throat Cardiovascular Cardiovascular: Denies chest pain Respiratory/Chest Respiratory/Chest: Reports cough and sputum Gastrointestinal Gastrointestinal: Denies abdominal pain, diarrhea, melena, nausea or vomiting Genitourinary Genitourinary ED: Denies dysuria or hematuria Musculoskeletal Musculoskeletal: Denies arthralgias Integumentary Denies abscess Neurologic Neurologic: Denies headache(s) Psychiatric Psychiatric: Denies anxiety Endocrine Endocrinology: Denies cold intolerance Hematologic/Lymphatic Hematologic/Lymphatic: Denies easy bleeding Allergic/Immunologic Allergic/Immunologic ED: Denies mouth swelling PFSH PFSH Medical History Wears glasses History of steroid therapy Back pain History of hiatal hernia Gastric reflux Non-smoker CPAP (continuous positive airway pressure) dependence Sleep apnea Shortness of breath on exertion Superficial phlebitis Post-menopausal vein removal legs Kidney stones Arthritis Back problem Depression Anxiety HTN (hypertension) Vitamin D deficiency AMALIA (obstructive sleep apnea) Degeneration, intervertebral disc Morbid obesity GERD (gastroesophageal reflux disease) Asthma Hematuria Rectal bleeding Home Medications ?Medication ?Instructions ?Recorded ?Last Taken ?Type lisinopril 10 1 tab PO DAILY 07/14/16 11/15/18 History mg-hydrochlorothiazide 12.5 mg tablet baclofen 10 mg tablet 10 mg PO TID PRN Pain 12/30/20 Unknown History fluoxetine 40 mg capsule 40 mg PO DAILY 12/30/20 Unknown History albuterol sulfate 90 mcg/actuation 2 puff inhalation Q4H PRN PRN 05/28/21 Unknown Rx aerosol inhaler Wheezing #18 grams fluticasone propionate 110 2 puff inhalation ONCE ASTHMA #12 09/02/22 Unknown Rx mcg/actuation HFA aerosol inhaler grams (Flovent HFA) azithromycin 250 mg tablet See Rx Instructions PO .COMPLEX #6 06/09/24 Unknown Rx (Zithromax Z-Paul) tabs meloxicam 15 mg tablet 15 mg PO DAILY 06/09/24 Unknown History pantoprazole 20 mg tablet,delayed 20 mg PO DAILY 06/09/24 Unknown History release Allergy/AdvReac Type Severity Reaction Status Date / Time acetaminophen (From Percocet) Allergy Mild Other Verified 06/09/24 06:35 oxycodone (From Percocet) Allergy Mild Other Verified 06/09/24 06:35 cefdinir (From Omnicef) Allergy Shortness Verified 06/09/24 06:35 of breath Family History Mother Hypertension Asthma Father Hypertension Thyroid disorder Surgical History Status post hip surgery History of colonoscopy (~07/2016) History of Hx of vein stripping S/P endometrial ablation Status post right foot surgery History of foot surgery History of renal stent Social History number of children: 1 current occupational status: employed current occupation: [employer] Smoking Status: Never smoker second hand exposure: No alcohol intake: never substance use type: does not use caffeine: Yes what type of physical activity do you participate in: none frequency: does not exercise seatbelt use: always do you feel safe at home: Yes additional social history: Single EXAM Physical Exam Narrative Exam Narrative: Well-appearing 54-year-old female. Vital signs are stable afebrile. Pulse ox 98% on room air no hypoxia. She is in no distress. H EENT exam moist mucous membranes. Posterior pharynx minimally erythematous. No exudate. Tonsils are not enlarged. TMs are normal. Clear bilaterally. No sinus tenderness. Currently no nasal drainage. Neck nontender no lymphadenopathy. Trachea midline. No trouble swallowing. Lungs clear to auscultation bilaterally. Dry cough. Currently no wheezing. No rales or rhonchi. Equal and symmetrical. No respiratory distress. Heart regular rate and rhythm rate about 75 no murmur. Chest wall ribs nontender. Abdomen soft nontender. Back nontender. Moving all 4 extremities. Normal strength. No edema. Neurologically she is awake and alert. Answering questions and following commands. No focal motor deficits. Benign exam. Const Vital Signs: 06/09/24 06:34 06/09/24 06:34 Temperature 97.8 F Temperature Source Oral Pulse Rate 76 Respiratory Rate 16 Respiratory Effort Normal Respiratory Pattern Normal Blood Pressure 164/87 H Blood Pressure Mean 112 Pulse Ox 98 Positive well nourished and well developed; Negative for cachectic or contractures General Appearance ED: well developed and NAD; Negative for cachectic, contractures, cyanotic, diaphoretic or pallor Nutritional Appearance: Negative for cachectic HEENT Reports moist mucous membranes normocephalic and atraumatic Face and Sinus: Negative for sinus tenderness Teeth and Gingiva: Negative for caries Throat: posterior oropharynx abnormal Positive for other (Minimal erythema. No exudate. Tonsils not large.) Eyes PERRL and EOMs intact bilaterally General Eye ED: Negative for pale conjunctiva or scleral icterus Neck no lymphadenopathy, supple and no meningeal signs General: Negative for anterior neck swelling or lymphadenopathy Resp normal respiratory effort and clear to auscultation bilaterally Resp Narrative: Dry cough. Effort and Inspection: Negative for retractions Auscultation: Negative for rales, rhonchi, wheezes or diminished lung sounds Cardio S1 normal heart sound, S2 normal heart sound and no murmurs Rate: regular rate Rhythm: regular rhythm GI non-tender, non-distended and no masses Inspection: Negative for abdominal distention Auscultation: normoactive bowel sounds Palpation: soft; Negative for tender or guarding Back/Spine no CVA tenderness and normal ROM General Back: Negative for CVA tenderness Cervical Spine: Negative for cervical spine tenderness Thoracic Spine / Upper Back: Negative for thoracic spinal tenderness Lumbar Spine / Lower Back: Negative for lumbar spinal tenderness Sacrum: Negative for tenderness Extremity normal to inspection and full ROM General Extremety ED: Negative for cyanosis, tenderness or other findings General Extremity: Negative for cyanosis or other findings Neuro oriented x3 and CN's II-XII intact bilaterally Sensorium / Orientation: alert, oriented to person, oriented to place and oriented to time; Negative for orientation impaired, lethargic or stuporous Motor Exam: strength 5/5 throughout Psych mental status grossly normal Attitude: No agitated Mood & Affect: Negative for depressed, anxious or tearful Skin General Skin Exam: Negative for jaundice or pallor Lesions: no lesions Rashes: no rashes Trauma: Negative for abrasion or laceration MDM MDM MDM Narrative Medical decision making narrative: At 34-year-old female URI symptoms. No obvious signs of strep throat. No lymphadenopathy. No exudate. No signs of pneumonia. I do not think she needs any labs nor imaging. I explained her most likely this is viral. Because she has had it for 1 week and is not improving I did write her for a Zithromax Z-PAUL which I explained to her I would not start currently but if she is not improving in the next several days she can use antibiotic. History & Record Review Discussion w/independent historian: Patient Additional record(s) reviewed:: Prior inpatient record, Prior outpatient record, Prior ED visit and Prior labs Discharge Plan Triage Chief Complaint: Cold Sx ED Provider: Tru Enriquez Dx/Rx/DC Orders Clinical Impression: Bronchitis Instructions: ED Bronchitis with Wheezing (Adult) Prescriptions: New azithromycin [Zithromax Z-Paul] 250 mg tablet See Rx Instructions .ROUTE .COMPLEX Qty: 6 0RF Rx Instructions: For 250 mg dose pack: take 500 mg today (day 1), then 250 mg for 4 days (days 2-5) No Action baclofen 10 mg tablet 10 mg PO TID PRN (Reason: Pain) Patient Comments: TAKE 1/2 TO 1 TABLET BY MOUTH THREE TIMES DAILY NEEDED FOR SPASMS fluoxetine 40 mg capsule 40 mg PO DAILY Patient Comments: TAKE 1 CAPSULE BY MOUTH EVERY DAY albuterol sulfate 90 mcg/actuation HFA aerosol inhaler 2 puff INHALATION Q4H PRN PRN (Reason: Wheezing) Qty: 18 6RF lisinopril-hydrochlorothiazide 1 TABLET tablet 1 tab PO DAILY Patient Comments: BP meloxicam 15 mg tablet 15 mg PO DAILY pantoprazole 20 mg tablet,delayed release (DR/EC) 20 mg PO DAILY Flovent HFA 110 mcg/actuation HFA aerosol inhaler 2 puff INHALATION ONCE Qty: 12 6RF Primary Care Provider: Elena Crawford Referrals: Elena Crawford MD [Primary Care Provider] - 1 Week if not improving Activity Restrictions/Additional Instructions: Plenty of fluids and rest. Alternate Tylenol and Motrin for body aches and any fever. Most likely this is a virus. It should progressively get better. If you are narcs doctor antibiotic Zithromax Z-PAUL. Follow-up with your doctor if not improving or return if worse. Print Language: Malay Disposition Disposition: Home, Self Care
== END 2024-06-09 07:50 | disposition home or self-care (01) ==
LOC: ED 07:15
PROVIDERS: Emergency Provider Emergency Medicine; PCP Family Medicine; Visit Provider Emergency Medicine
DX: J40 Bronchitis, not specified as acute or chronic (principal); I10 Essential (primary) hypertension; K21.9 Gastro-esophageal reflux disease without esophagitis; Z79.899 Other long term (current) drug therapy
CPT/HCPCS: 99282

== ENCOUNTER → 2024-06-15 | Outpatient (CLI) | payer BC, SELFPAY ==
--- NOTE | 2024-06-15 11:49 | RAD_ITS ---
STUDY: X-RAY CHEST REASON FOR EXAM: Female, 54 years old. Evaluate for pneumonia. TECHNIQUE: Frontal and lateral views of the chest. COMPARISON: August 25, 2017 FINDINGS: Low volume inspiration. There is no demonstrated pleural abnormality. Normal size heart. Normal mediastinum and piedad. Normal visualized pulmonary arteries. Normal visualized aortic arch and descending thoracic aorta. Thoracic osteopenia with increased kyphosis and spondylosis unchanged. Normal visualized ribs, clavicles, and shoulders. No abnormality of the visualized soft tissue structures of the upper abdomen. RAD/Chest PA and Lateral IMPRESSION: Stable chest with no acute or active cardiopulmonary disease. Electronically Signed: Jean-Paul Romo MD at 17:44 EST ,
== END | disposition home or self-care (01) ==
LOC: MTRAD 11:48
PROVIDERS: PCP Family Medicine; Referring Provider Nurse Practitioner Family; Visit Provider Nurse Practitioner Family
DX: R05.9 Cough, unspecified (principal); R07.9 Chest pain, unspecified; R06.02 Shortness of breath

== ENCOUNTER → 2024-08-28 | Outpatient (CLI) | payer BC, SELFPAY ==
--- NOTE | 2024-08-28 09:40 | RAD_ITS ---
EXAM: XR Lumbosacral Spine, 4 or 5 Views CLINICAL INDICATION: RADICULOPATHY, LUMBOSACRAL REGION TECHNIQUE: Frontal, lateral and bilateral oblique views of the lumbar spine. COMPARISON: No relevant prior studies available. FINDINGS: VERTEBRAE: Moderate facet arthropathy of L4-S1. No acute fracture. Normal alignment. SACRUM/COCCYX: Unremarkable as visualized. No acute fracture. DISC SPACES: No acute findings. No significant narrowing. SOFT TISSUES: Unremarkable. RAD/L/S Spine Comp/w Bending Views IMPRESSION: Degenerative changes as above. Reading [facility]
== END | disposition home or self-care (01) ==
LOC: MTRAD 09:38
PROVIDERS: PCP Family Medicine; Referring Provider Anesthesiology Pain Medicine; Visit Provider Anesthesiology Pain Medicine
DX: M54.17 Radiculopathy, lumbosacral region (principal)
CPT/HCPCS: 72114

== ENCOUNTER → 2025-01-11 | Outpatient (CLI) | payer BC, SELFPAY ==
--- NOTE | 2025-01-11 14:28 | BI_ITS ---
EXAM: SCRN MAMM (CAD)W/KASANDRA BILAT DATE: 01/11/2025 CLINICAL HISTORY: F, Age 55 y/o , SCREEN Aunt with breast cancer. TECHNIQUE: SCRN MAMM (CAD)W/KASANDRA BILAT COMPARISON: Prior exam(s) dated prior study dated October 01, 2022.. FINDINGS: TISSUE DENSITY: The breasts are almost entirely fatty. Bilateral Breast Mammographic Findings: No significant masses, calcifications or other abnormalities are identified. Stable benign-appearing bilateral axillary lymph nodes. No suspicious masses, areas of developing architectural distortion, or suspicious calcifications. There has been no significant interval change. BI/SCRN MAMM (CAD)W/KASANDRA BILAT IMPRESSION: Stable examination. OVERALL FINAL ASSESSMENT BI-RADS 2: BENIGN RECOMMENDATION: Routine annual follow-up in 1 Year A letter with findings and recommendations will be mailed to the patient. Reading Location: [id number]
--- NOTE | 2025-01-11 14:28 | BI_ITS ---
EXAM: SCRN MAMM (CAD)W/KASANDRA BILAT DATE: 01/11/2025 CLINICAL HISTORY: F, Age 55 y/o , SCREEN Aunt with breast cancer. TECHNIQUE: SCRN MAMM (CAD)W/KASANDRA BILAT COMPARISON: Prior exam(s) dated prior study dated October 01, 2022.. FINDINGS: TISSUE DENSITY: The breasts are almost entirely fatty. Bilateral Breast Mammographic Findings: No significant masses, calcifications or other abnormalities are identified. Stable benign-appearing bilateral axillary lymph nodes. No suspicious masses, areas of developing architectural distortion, or suspicious calcifications. There has been no significant interval change. BI/SCRN MAMM (CAD)W/KASANDRA BILAT IMPRESSION: Stable examination. OVERALL FINAL ASSESSMENT BI-RADS 2: BENIGN RECOMMENDATION: Routine annual follow-up in 1 Year A letter with findings and recommendations will be mailed to the patient. Reading Location: [id number]
== END | disposition home or self-care (01) ==
LOC: OPBI 14:27
PROVIDERS: PCP Nurse Practitioner Family; Referring Provider Nurse Practitioner Family; Visit Provider Nurse Practitioner Family
DX: Z12.31 Encounter for screening mammogram for malignant neoplasm of breast (principal)
CPT/HCPCS: 77063; 77067

== ENCOUNTER → 2025-01-17 | Outpatient (CLI) | payer BC, SELFPAY ==
[2025-01-17 12:11] LABS: Hematocrit 41.2 % (37-47); Hemoglobin 13.4 g/dL (12.0-15.0); Immature Granulocytes Count 0.010 X10^3/uL (0.0-0.0); Mean Corp Hgb Conc 32.5 g/dL (32-36); Mean Corpuscular Volume 88.2 fL (81-99); Mean Platelet Vol. 10.2 fl (6.2-12.0); NRBC Flagged by Analyzer 0 % (0-5); Platelet Count 252 K/mm3 (150-450); RBC Distribution Width CV 13.3 % (11.6-14.6); RBC Distribution Width SD 43.4 fl (35.1-43.9); Red Blood Count 4.67 M/mm3 (4.2-5.4); White Blood Count 3.9 K/mm3 (4.4-11.0)
[2025-01-17 12:53] LABS: AST(SGOT) 26 U/L (<=31); Alanine Aminotransfer ALT/SGPT 16 U/L (<=34); Albumin, Serum 4.3 g/dL (3.5-5.0); Alkaline Phosphatase 78 U/L (35-104); Anion Gap 11 (5-15); BUN 21 mg/dL (4-19); BUN/Creat Ratio 24.0 RATIO (10-20); Calcium,Total 10.7 mg/dL (7.6-11.0); Carbon Dioxide 26.7 mmol/L (21.0-32.0); Chloride 100 mmol/L (98-108); Globulin 3.1 g/dL (2.2-4.2); Glucose 90 mg/dL (70-99); Potassium 4.4 mmol/L (3.3-5.1)
[2025-01-17 13:37] LABS: Cholesterol 184 mg/dL (<=200); Low Density Lipoprotein Calc. 116 mg/dL; Triglycerides 92 mg/dL; Very Low Density Lipoprotein 18 mg/dL (5-40); cholesterol:hdl ratio screen 3.68
== END | disposition home or self-care (01) ==
LOC: MTLAB 10:31
PROVIDERS: PCP Nurse Practitioner Family; Referring Provider Nurse Practitioner Family; Visit Provider Nurse Practitioner Family
DX: Z00.01 Encounter for general adult medical examination with abnormal findings (principal)
CPT/HCPCS: 36415; 80053; 80061; 85025

== ENCOUNTER → 2025-04-01 | Outpatient (CLI) | payer BC, SELFPAY ==
--- NOTE | 2025-04-01 09:23 | RAD_ITS ---
EXAM: XR Lumbosacral Spine Flexion/Extension Only, 2 or 3 Views CLINICAL INDICATION: LUMBAR PAIN TECHNIQUE: Lateral flexion/extension views of the lumbar spine and sacrum. COMPARISON: No relevant prior studies available. FINDINGS: VERTEBRAE: Moderate facet arthropathy L3-S1. Mild endplate degenerative changes and disc degeneration of L4 to S1. No acute fracture. Normal sagittal alignment. No instability. SACRUM/COCCYX: Unremarkable as visualized. No acute fracture. DISC SPACES: No acute findings. No significant narrowing. SOFT TISSUES: Unremarkable. RAD/L/S Spine Comp/w Bending Views IMPRESSION: Degenerative changes as above. No acute fracture or significant dynamic instability. Reading Location: [id number]
== END | disposition home or self-care (01) ==
LOC: MTRAD 09:21
PROVIDERS: PCP Nurse Practitioner Family; Referring Provider Clinical Nurse Specialist Adult Health; Visit Provider Clinical Nurse Specialist Adult Health
DX: M51.369 Other intervertebral disc degeneration, lumbar region without mention of lumbar back pain or lower extremity pain (principal)
CPT/HCPCS: 72114